=== PATIENT | female | born 1925 | race Caucasian/White ===

== ENCOUNTER 2016-09-23 12:55 | Emergency (ER) | payer MEDICARE ==
[~2016-09-23] VITALS: Ht 162.6 cm; Wt 50.0 kg
[2016-09-23 13:12] VITALS: BP 126/78; PULSE 82; RESP 18; TEMP 98.2; O2SAT 98
[2016-09-23 13:21] VITALS: BP 126/78; PULSE 82; RESP 18; TEMP 98.2; O2SAT 98
--- NOTE | 2016-09-23 13:30 | PD ---
HPI Chief Complaint: Fall Time Seen by Provider: 13:24 Travel History International Travel<30 days: No Contact w/Intl Traveler<30days: No Traveled to known affect area: No History of Present Illness HPI 89-year-old elderly female presents to the emergency department for her assisted -living facility with the nurse at bedside. The patient is very hard of hearing and is difficult to obtain information from the patient. Their nurse at bedside witnessed the fall. She states that she was in the bathroom and became tangled in her pants causing her to fall forward and hit her head. She is on Eliquis for atrial fibrillation. The patient is also complaining of left medial wrist pain with palpation. She was able to ambulate after the fall. The patient denies any pain to me. PFSH Past Medical History Hx Anticoagulant Therapy: Yes (ELIQUIS) Cardiovascular Problems: Yes (AFIB) ?: Not Social History Alcohol Use: No Tobacco Use: No Substance Use: No Allergies-Medications (Allergen,Severity, Reaction): Coded Allergies: No Known Allergies (Unverified , 09/23/16) Reported Meds & Prescriptions Reported Meds & Active Scripts Active Review of Systems Except as stated in HPI: all other systems reviewed are Neg Physical Exam Narrative GENERAL: Well-nourished, well-developed elderly female patient, afebrile. SKIN: Focused skin assessment warm/dry. HEAD: Normocephalic. Patient has slight swelling to the left upper eye orbit. EYES: No scleral icterus. No injection or drainage. NECK: Supple, trachea midline. No JVD or lymphadenopathy. CARDIOVASCULAR: Regular rate and rhythm without murmurs, gallops, or rubs. RESPIRATORY: Breath sounds equal bilaterally. No accessory muscle use. Lungs sounds are clear to auscultation. GASTROINTESTINAL: Abdomen soft, non-tender, nondistended. MUSCULOSKELETAL: No cyanosis, or edema. Patient has tenderness to palpation over the left medial wrist. No obvious deformity. Patient has full range of motion. BACK: Nontender without obvious deformity. No CVA tenderness. Data Data Last Documented VS Vital Signs Date Time Temp Pulse Resp B/P Pulse Ox O2 Delivery O2 Flow Rate FiO2 09/23/16 13:21 18 98 Room Air 09/23/16 13:21 98.2 82 126/[address] Brain W/O Iv Contrast(Rout) (09/23/16 ) Hand, Complete (Oro2nzs) (09/23/16 ) Ct Cerv Spine W/O Contrast (09/23/16 ) MDM Medical Decision Making Medical Screen Exam Complete: Yes Emergency Medical Condition: Yes Medical Record Reviewed: Yes Interpretation(s) CT cervical spine - CONCLUSION: Negative trauma CT. CT brain - CONCLUSION: Negative trauma CT. Last Impressions Hand X-Ray 09/23/16 0000 Signed Impressions: Service Date/Time: Friday, September 23, 2016 13:42 - CONCLUSION: 1. No acute fracture or malalignment. 2. Osteopenia and mild osteoarthritic change. David Burrows MD Differential Diagnosis Closed head injury versus intracranial abnormality versus hand contusion versus fracture versus sprain versus cervical strain versus cervical fracture Narrative Course 89-year-old elderly female presents to the emergency department via EMS from her [facility] for evaluation after a fall. Patient tripped and fell. She was able ambulatory after the fall. CT of the brain and cervical spine are ordered and pending. X-ray of the left hand is ordered and pending. CT of the brain is negative. CT of the cervical spine is negative. X-ray of the left hand shows no acute fracture or malalignment; osteopenia and mild osteoarthritic change. Imaging results are reassuring. Patient is stable for discharge back to her [facility]. Diagnosis Primary Impression: Closed head injury Qualified Code: S09.90XA - Closed head injury, initial encounter Additional Impression: Hand contusion Qualified Code: S60.222A - Contusion of left hand, initial encounter Referrals: Primary Care Physician call for appointment Patient Instructions: Contusion in Adults (ED), General Instructions, Head Injury (ED) Additional Instructions: Ice for 20 minutes 4-5 times daily. [id number] Tylenol every 4 hours as needed for pain. Follow-up with your primary care physician. Return to the emergency department for any acute worsening of symptoms. Med/Other Pt SpecificInfo: No Change to Meds Disposition: 01 DISCHARGE HOME Condition: Stable Sindi Harkins Sep 23, 2016 13:30
--- NOTE | 2016-09-23 14:04 | RADRPT ---
EXAM DATE/TIME: 09/23/2016 13:42 [facility] COMPARISON: No previous studies available for comparison. INDICATIONS : Left hand pain, fall. MEDICAL HISTORY : None. SURGICAL HISTORY : None. ENCOUNTER: Initial ACUITY: 1 day PAIN SCORE: 7/10 LOCATION: Left posterior hand FINDINGS: AP, lateral and oblique views of the left hand were obtained and demonstrate diffuse osteopenia and m ild osteoarthritic change. There is no acute fracture or malalignment. The metacarpals are intact. No focal soft tissue abnormality is identified radiographically. CONCLUSION: 1. No acute fracture or malalignment. 2. Osteopenia and mild osteoarthritic change. David Burrows MD on September 23, 2016 at 14:02 Board Certified Radiologist. This report was verified electronically.
--- NOTE | 2016-09-23 14:49 | RADRPT ---
EXAM DATE/TIME: 09/23/2016 14:33 [facility] COMPARISON: No previous studies available for comparison. INDICATIONS : Fall injury to left forehead. Confusion. RADIATION DOSE: 56.8 CTDIvol (mGy) MEDICAL HISTORY : Dementia. Cardiovascular disease Afib SURGICAL HISTORY : None. ENCOUNTER: Initial ACUITY: 1 day PAIN SCALE: 7/10 LOCATION: Left cranial TECHNIQUE: Multiple contiguous axial images were obtained of the head. Using automated exposure control and adj ustment of the mA and/or kV according to patient size, radiation dose was kept as low as reasonably a chievable to obtain optimal diagnostic quality images. DICOM format image data is available electro nically for review and comparison. FINDINGS: CEREBRUM: The ventricles are normal for age with diffuse atrophy and chronic small vessel ischemic change. No e vidence of midline shift, mass lesion, hemorrhage or acute infarction. No extra-axial fluid collecti ons are seen. POSTERIOR FOSSA: The cerebellum and brainstem are intact. The 4th ventricle is midline. The cerebellopontine angle i s unremarkable. EXTRACRANIAL: The visualized portion of the orbits is intact. SKULL: The calvaria is intact. No evidence of skull fracture. CONCLUSION: Negative trauma CT. David Burrows MD on September 23, 2016 at 14:46 Board Certified Radiologist. This report was verified electronically.
--- NOTE | 2016-09-23 14:56 | RADRPT ---
EXAM DATE/TIME: 09/23/2016 14:34 [facility] COMPARISON: No previous studies available for comparison. INDICATIONS : Fall injury to left forehead.Confusion. RADIATION DOSE: 27.89 CTDIvol (mGy) MEDICAL HISTORY : Dementia. Cardiovascular disease Afib SURGICAL HISTORY : None. ENCOUNTER: Initial ACUITY: 1 day PAIN SCALE: 7/10 LOCATION: Left cranial TECHNIQUE: Volumetric scanning of the cervical spine was performed. Multiplanar reconstructions in the sagittal, coronal and oblique axial planes were performed. Using automated exposure control and adjustment o f the mA and/or kV according to patient size, radiation dose was kept as low as reasonably achievable to obtain optimal diagnostic quality images. DICOM format image data is available electronically f or review and comparison. FINDINGS: The sagittal reconstructions demonstrate normal alignment and normal prevertebral soft tissues. The d ens is intact and there is a normal atlantoaxial relationship. Mild degenerative disc changes are pre sent. There is diffuse osteopenia. The axial images demonstrate that the vertebral bodies and posterior elements are intact. The soft ti ssues are within normal limits. There is no evidence of acute fracture or malalignment. CONCLUSION: Negative trauma CT. David Burrows MD on September 23, 2016 at 14:53 Board Certified Radiologist. This report was verified electronically.
== END 2016-09-23 15:54 | disposition home or self-care (01) ==
LOC: NEPD 12:55
DX: S09.90XA Unspecified injury of head, initial encounter (principal); S60.222A Contusion of left hand, initial encounter; M85.842 Other specified disorders of bone density and structure, left hand; I48.91 Unspecified atrial fibrillation; W01.0XXA Fall on same level from slipping, tripping and stumbling without subsequent striking against object, initial encounter; Y92.129 Unspecified place in nursing home as the place of occurrence of the external cause
CPT/HCPCS: 70450; 72125; 73130

== ENCOUNTER 2016-10-13 08:16 | Emergency (ER) | payer MEDICARE ==
[2016-10-13 08:19] VITALS: BP 179/93; PULSE 93; RESP 16; TEMP 99.1; O2SAT 98
--- NOTE | 2016-10-13 08:28 | PD ---
HPI . 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 There was no associated loss of consciousness. She has been acting her usual self since that time. She is on Eliquis. [facility] Past Medical History Medical History: Unable to Obtain Hx Anticoagulant Therapy: Yes (Eliquise) Atrial Fibrillation: Yes Cardiovascular Problems: Yes (AFIB) Dementia: Yes Diminished Hearing: Yes Tetanus Vaccination: Unknown ?: Not Past Surgical History Surgical History: Unable to Obtain Social History Alcohol Use: No Tobacco Use: No Substance Use: No Allergies-Medications (Allergen,Severity, Reaction): Coded Allergies: No Known Allergies (Unverified , 10/13/16) Reported Meds & Prescriptions Reported Meds & Active Scripts Active Reported Seroquel (Quetiapine Fumarate) 25 Mg Tab 12.5 Mg PO BID PRN Quetiapine (Quetiapine Fumarate) 25 Mg Tab 50 Mg PO HS Centrum Silver (Multiple Vitamins W/ Minerals) 400 Mcg-250 Mcg Chw 1 Tab PO DAILY Calcium 600+D Plus Minerals (Calcium Carbonate-Vitamin D W/Minerals) 600-400 Mg- Unit Tab 1 Tab PO BID Biotin 10 Mg Tab 10 Mg PO BID Vitamin B-12 (Cyanocobalamin) 1,000 Mcg Tab 1,000 Mcg PO DAILY Quetiapine (Quetiapine Fumarate) 25 Mg Tab 12.5 Mg PO DAILY Propafenone (Propafenone HCl) 150 Mg Tab 150 Mg PO BID Probiotic (Lactobacillus Acidophilus) 10 Billion Cell Cap 1 Cap PO BID Memantine 10 Mg Tab 10 Mg PO BID Exelon Patch (Rivastigmine) 9.5 mg/24 hr Patch 1 Patch T-DERMAL DAILY Eliquis (Apixaban) 2.5 Mg Tab 2.5 Mg PO BID Review of Systems ROS Limitations: Poor Historian, Other: (dementia) Physical Exam Narrative GENERAL: This patient is awake and alert and able to tell me her name. She has no idea where she is or why she is here. SKIN: warm/dry. HEAD: Normocephalic. She has a contusion to the posterior scalp. EYES: Pupils equal and round. No scleral icterus. No injection or drainage. ENT: No nasal bleeding or discharge. Mucous membranes pink and moist. NECK: Trachea midline. Full range of motion without pain.. CARDIOVASCULAR: Regular rate and rhythm. RESPIRATORY: No accessory muscle use. Clear to auscultation. Breath sounds equal bilaterally. MUSCULOSKELETAL: No obvious deformities. NEUROLOGICAL: Awake and alert. No obvious cranial nerve deficits. Motor grossly within normal limits. Normal speech. PSYCHIATRIC: Pleasantly demented. Data Data Last Documented VS Vital Signs Date Time Temp Pulse Resp B/P (MAP) Pulse Ox O2 Delivery O2 Flow Rate FiO2 10/13/16 08:21 93 16 98 Room Air 10/13/16 08:19 99.1 179/93 (121) Orders Orders Ct Brain W/O Iv Contrast(Rout) (10/13/16 08:25) Ct Cerv Spine W/O Contrast (10/13/16 08:25) [facility] Medical Decision Making Medical Screen Exam Complete: Yes Emergency Medical Condition: Yes Differential Diagnosis My differential diagnosis of head trauma includes but is not limited to scalp contusion, concussion, intracerebral hemorrhage. Narrative Course This patient presents for evaluation of injury to her head. She has dementia and is on Eliquis. CT of her head and neck are pending. Last Impressions Head CT 10/13/16824 Signed Impressions: Service Date/Time: October 08:42 - CONCLUSION: Atrophic and small vessel ischemic changes without any evidence for acute hemorrhage or mass effect. Rosalio Bush MD CT C-spine: 1. No acute fracture or prevertebral soft tissue swelling. 2. Diffuse cervical spondylosis from C3 through C7. 3. Mild bilateral foraminal narrowing at C3-4, C4-5, C5-6 and C6-7. 4. Multinodular thyroid. Diagnosis Primary Impression: Scalp contusion Qualified Codes: S00.03XA - Contusion of scalp, initial encounter Patient Instructions: General Instructions, Scalp Contusion in Adults (ED) Disposition: 01 DISCHARGE HOME Condition: Stable Dana Escobar MD Oct 13, 2016 08:28
[2016-10-13] MEDS ORDERED: RIVA9.5T T-DERMAL (08:39)
[2016-10-13] MEDS ORDERED: CALCTAB33 PO (08:39)
[2016-10-13] MEDS ORDERED: PROP150T PO (08:39)
[2016-10-13] MEDS ORDERED: BIOT10TA PO (08:39)
[2016-10-13] MEDS ORDERED: MEMA1TAB2 PO (08:39)
[2016-10-13] MEDS ORDERED: QUET1TAB7 PO ×2 (08:39)
[2016-10-13] MEDS ORDERED: APIX2.5T PO (08:39)
[2016-10-13] MEDS ORDERED: CENTCHW3 PO (08:39)
[2016-10-13] MEDS ORDERED: LACTCAP8 PO (08:39)
[2016-10-13] MEDS ORDERED: VITA10002 PO (08:39)
[2016-10-13] MEDS ORDERED: SERO25TA PO (08:39)
--- NOTE | 2016-10-13 09:20 | RADRPT ---
EXAM DATE/TIME: 10/13/2016 08:42 [facility] COMPARISON: CT CERVICAL SPINE W/O CONTRAST, September 23, 2016, 14:34. INDICATIONS : Trauma. Fell and hit the back of her head. RADIATION DOSE: 25.28 CTDIvol (mGy) MEDICAL HISTORY : Dementia. Cardiovascular disease SURGICAL HISTORY : None. ENCOUNTER: Initial ACUITY: 1 day PAIN SCALE: 0/10 LOCATION: neck TECHNIQUE: Volumetric scanning of the cervical spine was performed. Multiplanar reconstructions in the sagittal, coronal and oblique axial planes were performed. Using automated exposure control and adjustment o f the mA and/or kV according to patient size, radiation dose was kept as low as reasonably achievable to obtain optimal diagnostic quality images. DICOM format image data is available electronically f or review and comparison. FINDINGS: Cervical spondylosis is noted from C3 through C7. There is no acute fracture or prevertebral soft ti ssue swelling. No bony spinal canal stenosis is noted. The bony relationship and alignment between C1 and C2 is well maintained. Mild bilateral foraminal narrowing is noted at C3-4, C4-5, C5-6 and C6 -7. Multiple thyroid nodules are noted bilaterally. CONCLUSION: 1. No acute fracture or prevertebral soft tissue swelling. 2. Diffuse cervical spondylosis from C3 through C7. 3. Mild bilateral foraminal narrowing at C3-4, C4-5, C5-6 and C6-7. 4. Multinodular thyroid. Richard Martin MD on October 13, 2016 at 9:11 Board Certified Radiologist. This report was verified electronically.
--- NOTE | 2016-10-13 09:53 | RADRPT ---
EXAM DATE/TIME: 10/13/2016 08:42 [facility] COMPARISON: CT BRAIN W/O CONTRAST, September 23, 2016, 14:33. INDICATIONS : Trauma. Fell and hit the back of her head. RADIATION DOSE: 41.70 CTDIvol (mGy) MEDICAL HISTORY : Cardiovascular disease. Dementia. SURGICAL HISTORY : None. ENCOUNTER: Initial ACUITY: 1 day PAIN SCALE: 4/10 LOCATION: cranial TECHNIQUE: Multiple contiguous axial images were obtained of the head. Using automated exposure control and adj ustment of the mA and/or kV according to patient size, radiation dose was kept as low as reasonably a chievable to obtain optimal diagnostic quality images. DICOM format image data is available electro nically for review and comparison. FINDINGS: There is no evidence for intracranial hemorrhage, mass effect, mass lesions, or edema. The visualize d bony structures appear intact. Slight degree of brain atrophy is seen. Slight to moderate perivent ricular white matter changes are seen nonspecific mostly consistent with chronic small vessel ischemi c changes. There are no signs of acute infarction for technique. CONCLUSION: Atrophic and small vessel ischemic changes without any evidence for acute hemorr marlyn or mass effect. Rosalio Bush MD on October 13, 2016 at 9:49 Board Certified Radiologist. This report was verified electronically.
== END 2016-10-13 10:14 | disposition home or self-care (01) ==
LOC: PHED 08:16
DX: S00.03XA Contusion of scalp, initial encounter (principal); I48.91 Unspecified atrial fibrillation; F03.90 Unspecified dementia, unspecified severity, without behavioral disturbance, psychotic disturbance, mood disturbance, and anxiety; Z79.01 Long term (current) use of anticoagulants; W19.XXXA Unspecified fall, initial encounter; Y92.129 Unspecified place in nursing home as the place of occurrence of the external cause; Y99.8 Other external cause status
CPT/HCPCS: 70450; 72125; 99285

== ENCOUNTER 2016-11-05 21:21 | Observation (INO) | payer MEDICARE ==
[~2016-11-05 21:21] MED LIST: APIX2.5T PO; BIOT10TA PO; CALCTAB33 PO; CENTCHW3 PO; LACTCAP8 PO; MEMA1TAB2 PO; PROP150T PO; QUET1TAB7 PO; RIVA9.5T T-DERMAL; SERO25TA PO; VITA10002 PO
[2016-11-05] MEDS ORDERED: SODIUM CHLOR 0.9% 1000 ML INJ 1,000 ML IV SCH (21:57)
[2016-11-05 22:00] VITALS: BP 139/59; PULSE 89; RESP 16; O2SAT 100
--- NOTE | 2016-11-05 22:12 | PD ---
HPI Chief Complaint: Syncope/Near-Syncope Time Seen by Provider: 21:55 Travel History International Travel<30 days: No Contact w/Intl Traveler<30days: No Traveled to known affect area: No History of Present Illness HPI 89-year-old female that presents to the ED for evaluation of syncope. Patient was brought here by ambulance for evaluation of this. Patient lives in an [facility]. Patient has a history of A. fib and takes liquids as well as a history of dementia. History is minimal from the patient. Per ED nurse report as well as the [facility] report patient was in the bathroom and apparently had a bowel movement and possibly passed out during this time. She was found by staff at the facility. She was brought here for evaluation. No obvious sign of head trauma. Patient herself is no a good historian at all. History is limited from her. She did per ED nurse report had a bloody bowel movement when they changed her diaper. No other medical issues reported. No chest pain or shortness of breath. No abdominal pain. No fevers chills or sweats. Again history is limited because of the patient's mental status. PFSH Past Medical History Hx Anticoagulant Therapy: Yes (Eliquise) Atrial Fibrillation: Yes Cardiovascular Problems: Yes (AFIB) Dementia: Yes Diminished Hearing: Yes Social History Alcohol Use: No Tobacco Use: No Substance Use: No Allergies-Medications (Allergen,Severity, Reaction): Coded Allergies: No Known Allergies (Unverified , 10/13/16) Reported Meds & Prescriptions Reported Meds & Active Scripts Active Reported Seroquel (Quetiapine Fumarate) 25 Mg Tab 12.5 Mg PO BID PRN Quetiapine (Quetiapine Fumarate) 25 Mg Tab 50 Mg PO HS Centrum Silver (Multiple Vitamins W/ Minerals) 400 Mcg-250 Mcg Chw 1 Tab PO DAILY Calcium 600+D Plus Minerals (Calcium Carbonate-Vitamin D W/Minerals) 600-400 Mg- Unit Tab 1 Tab PO BID Biotin 10 Mg Tab 10 Mg PO BID Vitamin B-12 (Cyanocobalamin) 1,000 Mcg Tab 1,000 Mcg PO DAILY Quetiapine (Quetiapine Fumarate) 25 Mg Tab 12.5 Mg PO DAILY Propafenone (Propafenone HCl) 150 Mg Tab 150 Mg PO BID Probiotic (Lactobacillus Acidophilus) 10 Billion Cell Cap 1 Cap PO BID Memantine 10 Mg Tab 10 Mg PO BID Exelon Patch (Rivastigmine) 9.5 mg/24 hr Patch 1 Patch T-DERMAL DAILY Eliquis (Apixaban) 2.5 Mg Tab 2.5 Mg PO BID Review of Systems ROS Limitations: Poor Historian Except as stated in HPI: all other systems reviewed are Neg Physical Exam Exam Limitations: Poor Historian Narrative GENERAL: SKIN: Warm and dry. HEAD: Atraumatic. Normocephalic. EYES: Pupils equal and round. No scleral icterus. No injection or drainage. ENT: No nasal bleeding or discharge. Mucous membranes pink and moist. Tongue is midline. No uvula deviation. NECK: Trachea midline. No JVD. CARDIOVASCULAR: Regular rate and rhythm. No murmurs, S3, S4. RESPIRATORY: No accessory muscle use. Clear to auscultation. Breath sounds equal bilaterally. GASTROINTESTINAL: Abdomen soft, non-tender, nondistended. Hepatic and splenic margins not palpable. Rectal exam revealed no obvious sign of hemorrhoids but there was some slightly reddish blood on her anus. MUSCULOSKELETAL: Extremities without clubbing, cyanosis, or edema. No obvious deformities. Full range of motion of the upper and lower extremities bilaterally. 2+ pulses bilaterally. NEUROLOGICAL: Awake and alert. No obvious cranial nerve deficits. Motor grossly within normal limits. Five out of 5 muscle strength in the arms and legs. Normal speech. PSYCHIATRIC: Appropriate mood and affect; insight and judgment normal. Data Data Orders Orders Electrocardiogram (11/05/16 21:55) Complete Blood Count With Diff (11/05/16 21:55) Comprehensive Metabolic Panel (11/05/16 21:55) Ckmb (Isoenzyme) Profile (11/05/16 21:55) Troponin I (11/05/16 21:55) Prothrombin Time / Inr (Pt) (11/05/16 21:55) Act Partial Throm Time (Ptt) (11/05/16 21:55) Blood Culture (11/05/16 21:55) Urinalysis - C+S If Indicated (11/05/16 21:55) Cath For Specimen (11/05/16 21:55) Magnesium (Mg) (11/05/16 21:55) Chest, Single Ap (11/05/16 21:55) Ct Brain W/O Iv Contrast(Rout) (11/05/16 21:55) Iv Access Insert/Monitor (11/05/16 21:55) Ecg Monitoring (11/05/16 21:55) Oximetry (11/05/16 21:55) Type And Screen (11/05/16 21:55) Sodium Chlor 0.9% 1000 Ml Inj (Ns 1000 M (11/05/16 21:57) MDM Medical Decision Making Medical Screen Exam Complete: Yes Emergency Medical Condition: Yes Medical Record Reviewed: Yes Interpretation(s) CXR negative CT head negative Differential Diagnosis GI bleed versus syncope versus anemia versus head injury versus CVA versus ACS versus dehydration Narrative Course 89-year-old female that presents to the ED for evaluation of syncope. Patient was properly examined and was found to have signs and symptoms consistent appears to be syncope. Patient also appears to have GI bleed. Labs and imaging were ordered. Patient taking in liquids. Labs and imaging pending at the writing of this note. Case signed out to Dr Cuevas pending dispo. Bobby Merrill Nov 05, 2016 22:12
--- NOTE | 2016-11-05 22:39 | RADRPT ---
EXAM DATE/TIME: 11/05/2016 22:18 [facility] COMPARISON: CT BRAIN W/O CONTRAST, October 13, 2016, 8:42. INDICATIONS : Altered mental status with syncopal episode. RADIATION DOSE: 26.52 CTDIvol (mGy) MEDICAL HISTORY : Cardiovascular disease. Dementia. SURGICAL HISTORY : None. ENCOUNTER: Initial ACUITY: 1 day PAIN SCALE: Non-responsive LOCATION: cranial TECHNIQUE: Multiple contiguous axial images were obtained of the head. Using automated exposure control and adj ustment of the mA and/or kV according to patient size, radiation dose was kept as low as reasonably a chievable to obtain optimal diagnostic quality images. DICOM format image data is available electro nically for review and comparison. FINDINGS: CEREBRUM: The ventricles are normal for age. No evidence of midline shift, mass lesion, hemorrhage or acute in farction. No extra-axial fluid collections are seen. POSTERIOR FOSSA: The cerebellum and brainstem are intact. The 4th ventricle is midline. The cerebellopontine angle i s unremarkable. EXTRACRANIAL: The visualized portion of the orbits is intact. SKULL: The calvaria is intact. No evidence of skull fracture. CONCLUSION: Age-appropriate atrophy. No acute findings. Gonzalo Faustin MD on November 05, 2016 at 22:37 Board Certified Radiologist. This report was verified electronically.
--- NOTE | 2016-11-05 22:40 | RADRPT ---
EXAM DATE/TIME: 11/05/2016 22:29 [facility] COMPARISON: No previous studies available for comparison. INDICATIONS : Syncope. MEDICAL HISTORY : Cardiovascular disease. Dementia. SURGICAL HISTORY : None. ENCOUNTER: Initial ACUITY: 1 day PAIN SCORE: Non-responsive. LOCATION: Bilateral chest FINDINGS: A single view of the chest demonstrates the lungs to be symmetrically aerated without evidence of mas s, infiltrate or effusion. The cardiomediastinal contours are unremarkable. Osseous structures are intact. Metallic leads and bra clips project over the knee is patent. CONCLUSION: The lungs are clear. Gonzalo Faustin MD on November 05, 2016 at 22:38 Board Certified Radiologist. This report was verified electronically.
[2016-11-05 23:51] VITALS: O2SAT 96
--- NOTE | 2016-11-05 23:56 | PD ---
Data Data Last Documented VS Vital Signs Date Time Temp Pulse Resp B/P (MAP) Pulse Ox O2 Delivery O2 Flow Rate FiO2 11/05/16 23:51 96 Orders Orders Electrocardiogram (11/05/16 21:55) Complete Blood Count With Diff (11/05/16 21:55) Comprehensive Metabolic Panel (11/05/16 21:55) Ckmb (Isoenzyme) Profile (11/05/16 21:55) Troponin I (11/05/16 21:55) Prothrombin Time / Inr (Pt) (11/05/16 21:55) Act Partial Throm Time (Ptt) (11/05/16 21:55) Blood Culture (11/05/16 21:55) Urinalysis - C+S If Indicated (11/05/16 21:55) Cath For Specimen (11/05/16 21:55) Magnesium (Mg) (11/05/16 21:55) Chest, Single Ap (11/05/16 21:55) Ct Brain W/O Iv Contrast(Rout) (11/05/16 21:55) Iv Access Insert/Monitor (11/05/16 21:55) Ecg Monitoring (11/05/16 21:55) Oximetry (11/05/16 21:55) Type And Screen (11/05/16 21:55) Sodium Chlor 0.9% 1000 Ml Inj (Ns 1000 M (11/05/16 21:57) CKMB (11/05/16 23:35) CKMB% (11/05/16 23:35) Admit Order (Ed Use Only) (11/06/16 ) Labs Laboratory Tests Test 11/05/16 23:35 White Blood Count 9.9 TH/MM3 Red Blood Count 4.01 MIL/MM3 Hemoglobin 11.9 GM/DL Hematocrit 36.4 % Mean Corpuscular Volume 90.8 FL Mean Corpuscular Hemoglobin 29.8 PG Mean Corpuscular Hemoglobin Concent 32.8 % Red Cell Distribution Width 13.8 % Platelet Count 170 TH/MM3 Mean Platelet Volume 7.5 FL Neutrophils (%) (Auto) 84.2 % Lymphocytes (%) (Auto) 8.5 % Monocytes (%) (Auto) 6.9 % Eosinophils (%) (Auto) 0.2 % Basophils (%) (Auto) 0.2 % Neutrophils # (Auto) 8.3 TH/MM3 Lymphocytes # (Auto) 0.8 TH/MM3 Monocytes # (Auto) 0.7 TH/MM3 Eosinophils # (Auto) 0.0 TH/MM3 Basophils # (Auto) 0.0 TH/MM3 CBC Comment DIFF FINAL Differential Comment Urine Color YELLOW Urine Turbidity HAZY Urine pH 6.5 Urine Specific [place] 1.016 Urine Protein TRACE mg/dL Urine Glucose (UA) NEG mg/dL Urine Ketones NEG mg/dL Urine Occult Blood NEG Urine Nitrite NEG Urine Bilirubin NEG Urine Urobilinogen LESS THAN 2.0 MG/DL Urine Leukocyte Esterase TRACE Urine RBC 1 /hpf Urine WBC 5 /hpf Urine Mucus FEW /lpf Microscopic Urinalysis Comment CULT NOT INDICATED Blood Urea Nitrogen 23 MG/DL Creatinine 1.04 MG/DL Random Glucose 113 MG/DL Total Protein 7.1 GM/DL Albumin 3.6 GM/DL Calcium Level 9.5 MG/DL Magnesium Level 2.0 MG/DL Alkaline Phosphatase 86 U/L Aspartate Amino Transf (AST/SGOT) 21 U/L Alanine Aminotransferase (ALT/SGPT) 21 U/L Total Bilirubin 0.4 MG/DL Sodium Level 142 MEQ/L Potassium Level 4.2 MEQ/L Chloride Level 107 MEQ/L Carbon Dioxide Level 27.2 MEQ/L Anion Gap 8 MEQ/L Estimat Glomerular Filtration Rate 50 ML/MIN Total Creatine Kinase 106 U/L Creatine Kinase MB 1.4 NG/ML Troponin I LESS THAN 0.02 NG/ML [facility] Supervised Visit with TONYA: Yes Interpretation(s) My review of EKG: Normal sinus rhythm at a rate of 87, normal axis, normal intervals, no ischemia. Head CT: Age-appropriate atrophy. No acute findings. Chest x-ray: Negative. LABS: CBC is unremarkable. CMP is remarkable for mildly elevated BUN and creatinine Troponin negative Coags pending UA unremarkable. Narrative Course The history, exam, and medical decision-making in the associated mid-level provider note were completed with my assistance. I reviewed and agree with the findings presented. I attest that I had a [id number] encounter with the patient on the same day, and personally performed and documented my assessment and findings in the medical record. *My assessment and Findings: Is an 89-year-old woman who presents to the emergency department sent in for an episode of syncope. She takes blood thinners for her A. fib. He reports she was in the bathroom apparently had a syncopal episode following a bowel movement. She has guaiac positive stools on exam. Concern for GI bleed. She is dementia, gets agitated during exam. On exam, agitated and minimally interactive. Benign abdominal exam. Labs looked reassuring. We'll plan on admission for observation. Robert Cuevas MD Nov 05, 2016 23:56
[2016-11-06] VITALS (11 sets, daily range): BP systolic 104–176; BP diastolic 58–75; PULSE 74–93; RESP 16–20; TEMP 97.9–98.6; O2SAT 96–100
[2016-11-06 00:22] LABS: AUTOMATED NEUTROPHIL # 8.3 TH/MM3 (1.8-7.7); BASOPHIL % 0.2 % (0.0-2.0); BLOOD, URINE NEG (NEG); COMMENT (UR) CULT NOT INDICATED; CULTURE IF INDICATED CULT NOT INDICATED; EOSINOPHIL % 0.2 % (0.0-4.0); GLUCOSE,URINE NEG (NEG); HEMATOCRIT 36.4 % (35.0-46.0); HEMO FLAGS DIFF FINAL; KETONE, URINE NEG (NEG); LYMPH % 8.5 % (9.0-44.0); LYMPHOCYTE # 0.8 TH/MM3 (1.0-4.8); MEAN CELL VOLUME 90.8 FL (80.0-100.0); MEAN CORPUSCULAR HEMOGLOBIN 29.8 PG (27.0-34.0); MEAN CORPUSCULAR HGB CONC 32.8 % (32.0-36.0); MONO % 6.9 % (0.0-8.0); MUCUS URINE FEW /lpf (OCC); NEUT % 84.2 % (16.0-70.0); NITRITE,URINE NEG (NEG); PH, URINE 6.5 (5.0-8.5); PLATELET COUNT 170 TH/MM3 (150-450); RED BLOOD COUNT 4.01 MIL/MM3 (4.00-5.30); RED CELL DISTRIBUTION WIDTH 13.8 % (11.6-17.2); URINE COLOR YELLOW (YELLW/STRAW); WHITE BLOOD COUNT 9.9 TH/MM3 (4.0-11.0)
[2016-11-06 00:23] LABS: PROTHROMBIN TIME - PATIENT 11.1 SEC (9.8-11.6)
[2016-11-06 00:47] LABS: ALT (GPT) 21 U/L (10-53); ANION GAP 8 MEQ/L (5-15); AST (GOT) 21 U/L (15-37); BICARBONATE 27.2 MEQ/L (21.0-32.0); BLOOD UREA NITROGEN 23 MG/DL (7-18); CHLORIDE 107 MEQ/L (98-107); GLOMERULAR FILTRATION RATE 50 ML/MIN (>89); POTASSIUM 4.2 MEQ/L (3.5-5.1); SODIUM (NA) 142 MEQ/L (136-145)
[2016-11-06 00:50] LABS: ALKALINE PHOSPHATASE 86 U/L (45-117); CREATINE KINASE 106 U/L (26-192); TOTAL BILIRUBIN ADULT 0.4 MG/DL (0.2-1.0)
[2016-11-06 01:03] LABS: CKMB 1.4 NG/ML (0.5-3.6)
[2016-11-06] MEDS ORDERED: QUEtiapine FUMARATE 25 MG TAB PO PRN ×2 (05:30→14:45)
[2016-11-06] MEDS ORDERED: ONDANSETRON HCL 4 MG/2 ML VIAL IV PUSH PRN (05:30)
[2016-11-06] MEDS ORDERED: ACETAMINOPHEN 325 MG TAB PO PRN (05:30)
[2016-11-06] MEDS: SODIUM CHLOR 0.9% 1000 ML INJ 1,000 ML IV SCH ×2 (05:41→17:15)
--- NOTE | 2016-11-06 07:06 | EKG ---
Date Performed: 11/05/2016 Time Performed: 23:15:33 PTAGE: 89 years EKG: Sinus rhythm WITH SINUS ARRHYTHMIA NORMAL ECG NO PREVIOUS TRACING DOCTOR: Jerome Huerta Interpretating Date/Time 11/06/2016 07:04:28
--- NOTE | 2016-11-06 07:48 | PD.CONS ---
HPI History of Present Illness This is a 89 year old female, who resides in a local [facility], who presented to the emergency room for evaluation of a syncopal episode. She has a history of dementia and atrial fibrillation (takes Eliquis). According to the EMR, she was having a bowel movement and had a syncopal episode. She is guaiac positive on exam. HH on admission 11.9/36.4. GI was consulted for further evaluation and treatment. The patient is confused and unable to provide any history. Her son, Richard Lemus is her medical POA, ([phone]). He reports that she has a history of stomach ulcers several decades ago. He also reports that he is unaware of any gastrointestinal issues more recently other than chronic constipation. He does not know if she has had an EGD/Colonoscopy. D/W him the reason for her hospitalization, Guaiac positive stool, and GI evaluation. Discussed EGD/Colonoscopy, risk vs. benefits. He is unsure if he would want to proceed invasive workup and at this time, would like to wait for the repeat H/H to see if there is any significant drop prior to making a decision. He would like to be called with the repeat HH so that he can make an informed decision. He would also like to speak to the medical doctor about the possibility of stopping blood thinners. (Salome Gonsalves) PFSH Past Medical History Atrial fibrillation, on Eliquis Dementia Remote hx of PUD Chronic constipation LYTTON Past Surgical History Unable to obtain (Salome Gonsalves) Coded Allergies: No Known Allergies (Unverified , 10/13/16) Medications Allergies Coded Allergies Type Severity Reaction Last Updated Verified No Known Allergies 10/13/16 No Active Scripts Medications Dose Route/Sig Max Daily Dose Days Date Category Seroquel (Quetiapine Fumarate) 25 Mg Tab 12.5 Mg PO BID PRN 10/13/16 Reported Quetiapine (Quetiapine Fumarate) 25 Mg Tab 50 Mg PO HS 10/13/16 Reported Centrum Silver (Multiple Vitamins W/ Minerals) 400 Mcg-250 Mcg Chw 1 Tab PO DAILY 10/13/16 Reported Calcium 600+D Plus Minerals (Calcium Carbonate-Vitamin D W/Minerals) 600-400 Mg-Unit Tab 1 Tab PO BID 10/13/16 Reported Biotin 10 Mg Tab 10 Mg PO BID 10/13/16 Reported Vitamin B-12 (Cyanocobalamin) 1,000 Mcg Tab 1,000 Mcg PO DAILY 10/13/16 Reported Quetiapine (Quetiapine Fumarate) 25 Mg Tab 12.5 Mg PO DAILY 10/13/16 Reported Propafenone (Propafenone HCl) 150 Mg Tab 150 Mg PO BID 10/13/16 Reported Probiotic (Lactobacillus Acidophilus) 10 Billion Cell Cap 1 Cap PO BID 10/13/16 Reported Memantine 10 Mg Tab 10 Mg PO BID 10/13/16 Reported Exelon Patch (Rivastigmine) 9.5 mg/24 hr Patch 1 Patch T-DERMAL DAILY 10/13/16 Reported Eliquis (Apixaban) 2.5 Mg Tab 2.5 Mg PO BID 10/13/16 Reported Family History Unable to obtain Social History Unable to obtain (Salome Gonsalves) Review of Systems Cardiovascular: COMPLAINS OF: Syncope ROS Unable to obtain (Salome Gonsalves) GI Exam Vitals I&O Vital Signs Date Time Temp Pulse Resp B/P (MAP) Pulse Ox O2 Delivery O2 Flow Rate FiO2 11/06/16 05:46 77 11/06/16 03:40 97.9 90 16 110/69 (83) 98 Room Air 11/06/16 00:00 77 16 130/58 (82) 100 Room Air 11/05/16 23:51 96 11/05/16 22:00 89 16 139/59 (85) 100 Room Air I/O 11/05/16 11/05/16 11/05/16 11/06/16 11/06/16 11/06/16 07:00 15:00 23:00 07:00 15:00 23:00 Intake Total 1050 ml Balance 1050 ml Intake IV Total 1050 ml Laboratory Test 11/05/16 23:35 White Blood Count 9.9 TH/MM3 Red Blood Count 4.01 MIL/MM3 Hemoglobin 11.9 GM/DL Hematocrit 36.4 % Mean Corpuscular Volume 90.8 FL Mean Corpuscular Hemoglobin 29.8 PG Mean Corpuscular Hemoglobin Concent 32.8 % Red Cell Distribution Width 13.8 % Platelet Count 170 TH/MM3 Mean Platelet Volume 7.5 FL Neutrophils (%) (Auto) 84.2 % Lymphocytes (%) (Auto) 8.5 % Monocytes (%) (Auto) 6.9 % Eosinophils (%) (Auto) 0.2 % Basophils (%) (Auto) 0.2 % Neutrophils # (Auto) 8.3 TH/MM3 Lymphocytes # (Auto) 0.8 TH/MM3 Monocytes # (Auto) 0.7 TH/MM3 Eosinophils # (Auto) 0.0 TH/MM3 Basophils # (Auto) 0.0 TH/MM3 CBC Comment DIFF FINAL Differential Comment Prothrombin Time 11.1 SEC Prothromb Time International Ratio 1.0 RATIO Activated Partial Thromboplast Time 24.0 SEC Urine Color YELLOW Urine Turbidity HAZY Urine pH 6.5 Urine Specific [place] 1.016 Urine Protein TRACE mg/dL Urine Glucose (UA) NEG mg/dL Urine Ketones NEG mg/dL Urine Occult Blood NEG Urine Nitrite NEG Urine Bilirubin NEG Urine Urobilinogen LESS THAN 2.0 MG/DL Urine Leukocyte Esterase TRACE Urine RBC 1 /hpf Urine WBC 5 /hpf Urine Mucus FEW /lpf Microscopic Urinalysis Comment CULT NOT INDICATED Blood Urea Nitrogen 23 MG/DL Creatinine 1.04 MG/DL Random Glucose 113 MG/DL Total Protein 7.1 GM/DL Albumin 3.6 GM/DL Calcium Level 9.5 MG/DL Magnesium Level 2.0 MG/DL Alkaline Phosphatase 86 U/L Aspartate Amino Transf (AST/SGOT) 21 U/L Alanine Aminotransferase (ALT/SGPT) 21 U/L Total Bilirubin 0.4 MG/DL Sodium Level 142 MEQ/L Potassium Level 4.2 MEQ/L Chloride Level 107 MEQ/L Carbon Dioxide Level 27.2 MEQ/L Anion Gap 8 MEQ/L Estimat Glomerular Filtration Rate 50 ML/MIN Total Creatine Kinase 106 U/L Creatine Kinase MB 1.4 NG/ML Troponin I LESS THAN 0.02 NG/ML Date/Time Source Procedure Growth Status 11/05/16 23:40 Blood Peripheral Aerobic Blood Culture Pending Received 11/05/16 23:40 Blood Peripheral Anaerobic Blood Culture Pending Received Physical Examination HEENT: Normocephalic; atraumatic; no jaundice. CHEST: CTA, diminished bases CARDIAC: Regular at this time ABDOMEN: Soft, nondistended, nontender; no hepatosplenomegaly; bowel sounds are present in all four quadrants. EXTREMITIES: No clubbing, cyanosis, or edema. SKIN: Normal; no rash; no jaundice. AIRPLANE DISPATCH CLERK: Lethargic, confused, LYTTON (Salome Gonsalves) Assessment and Plan Plan ASSESSMENT: - Hemoccult (+) Stool. Pt brought to the ER for evaluation of syncopal episode. Guaiac positive on exam in ER. (+) Remote hx of PUD per son. (+) Eliquis for Afib. HH on admission 11.9/36.4. No active bleeding per nursing staff. Richard Lemus- son/medical POA, ([phone]). (+) Constipation. D/W EGD/Colonoscopy, risk vs. benefits. He is unsure if he would want to proceed invasive workup and at this time, would like to wait for the repeat H/H to see if there is any significant drop prior to making a decision. He would like to be called with the repeat HH so that he can make an informed decision. Will await repeat HH and then call son with the results of this. - Syncopal episode, unclear if this is a vagal response vs. r/t blood loss. 11.9/36.4. Rpt. pending. - Chronic constipation. Will start colace, miralax. - EMILY, mild. Per attending. - Afib. Eliquis at home. On hold. Son would like to speak to medical doctor re: possibly stopping this. He is aware of the risk for stroke. - Dementia, LYTTON per attending. PLAN: - Clear liquids - Await CBC - H/H q6h x 3 - CBC, BMP in am - Hold Eliquis for now - PPI - Add colace - Add Miralax - Son would like to be called with repeat HH so he can make an informed decision regarding which direction to go- egd/colonoscopy vs. more conservative approach. - Pt seen and examined by Dr. Lazcano and myself and this note is written on his behalf Rpt. HH stable. Called and updated son/poa. At this time, he would like to hold on any invasive procedures such as egd/colonoscopy. (Salome Gonsalves) Plan Patient was seen and examined, agree with above-noted, we will monitor lab, and the patient will be that we might consider procedure otherwise we will continue supportive care for now (Taye Lazcano MD) Salome Gonsalves Nov 06, 2016 07:48 Taye Lazcano MD Nov 06, 2016 17:31
[2016-11-06] MEDS: PROPAFENONE HCL 150 MG TAB PO SCH ×2 (09:00→21:05)
[2016-11-06] MEDS: DOCUSATE SODIUM 100 MG CAP PO SCH ×2 (09:40→21:05)
[2016-11-06] MEDS: POLYETHYLENE GLYCOL 17 GM PKG PO SCH (09:40)
[2016-11-06] MEDS: PANTOPRAZOLE SOD 40 MG DELAYED RELEASE TAB PO SCH (09:40)
[2016-11-06] MEDS: MEMANTINE HCL 10 MG TAB PO SCH ×2 (09:41→21:05)
[2016-11-06] MEDS: QUEtiapine FUMARATE 25 MG TAB PO SCH ×2 (09:43→21:06)
[2016-11-06] MEDS: RIVASTIGMINE 9.5 MG/24 HOUR PATCH T-DERMAL SCH (09:43)
[2016-11-06 10:24] LABS: HEMATOCRIT 39.9 % (35.0-46.0); MEAN CELL VOLUME 91.3 FL (80.0-100.0); MEAN CORPUSCULAR HGB CONC 32.9 % (32.0-36.0); PLATELET COUNT 185 TH/MM3 (150-450); RED BLOOD COUNT 4.37 MIL/MM3 (4.00-5.30); RED CELL DISTRIBUTION WIDTH 14.1 % (11.6-17.2); REVIEW FLAG FINAL; WHITE BLOOD COUNT 9.5 TH/MM3 (4.0-11.0)
--- NOTE | 2016-11-06 13:46 | HHI.PR ---
Objective Objective Results - Vital Signs Date Time Temp Pulse Resp B/P (MAP) Pulse Ox O2 Delivery O2 Flow Rate FiO2 11/06/16 11:27 98.6 83 16 173/69 (103) 97 11/06/16 09:30 92 11/06/16 08:15 97.9 83 20 176/75 (108) 96 11/06/16 05:46 77 11/06/16 04:30 98.4 74 17 104/67 (79) 97 11/06/16 03:40 97.9 90 16 110/69 (83) 98 Room Air 11/06/16 00:00 77 16 130/58 (82) 100 Room Air 11/05/16 23:51 96 11/05/16 22:00 89 16 139/59 (85) 100 Room Air I/O 11/05/16 11/05/16 11/05/16 11/06/16 11/06/16 11/06/16 07:00 15:00 23:00 07:00 15:00 23:00 Intake Total 1050 ml 1240 ml Balance 1050 ml 1240 ml Intake Oral 240 ml IV Total 1050 ml 1000 ml # Voids 1 (Mackenzie Gruber) Result Diagram: 11/06/16 0955 11/05/16 2335 A/P Assessment and Plan [id number] Possible syncope Possible GI bleed Dementia acute kidney injury HTN, mild DNR (Mackenzie Gruber) Assessment and Plan pt was seen & examined d/w Mackenzie iyer above d/w RN will observe see Orders will f/u (Smith Stone MD) Mackenzie Gruber Nov 06, 2016 13:46 Smith Stone MD Nov 06, 2016 14:48
--- NOTE | 2016-11-06 17:29 | RADRPT ---
EXAM DATE/TIME: 11/06/2016 16:21 [facility] COMPARISON: No previous studies available for comparison. INDICATIONS : Syncope. MEDICAL HISTORY : Atrial fibrillation. Dementia. Syncope. Ulcer. SURGICAL HISTORY : None. ENCOUNTER: Initial ACUITY: 2 days PAIN SCORE: 0/10 LOCATION: Bilateral neck PEAK SYSTOLIC VELOCITIES (cm/sec): ICA/CCA RATIO: Right: 1.1 Left: 1.9 ICA: Right: 70 Left: 86 CCA: Right: 63 Left: 45 ECA: Right: 57 Left: 42 VERTEBRAL: Right: 34 antegrade Left: 46 antegrade Elevated flow velocities and ICA/CCA ratios have been found to correlate with increased degrees of vessel stenosis, calculated as percentage of diameter relative to a normal segment of distal ICA/CCA FINDINGS: RIGHT CAROTID: No significant stenosis is visualized. Prominent calcification in the carotid bulb. The waveforms a re within normal limits. LEFT CAROTID: No significant stenosis is visualized. Mild calcification in the carotid bulb. The waveforms are wi thin normal limits. VERTEBRAL ARTERIES: Antegrade flow is seen in both vertebral arteries. MISCELLANEOUS: None. CONCLUSION: Calcified plaque in the carotid bulb bilaterally, right more prominent than on the left. Hemodynamic parameters suggest less than 50% stenosis. Gonzalo Faustin MD on November 06, 2016 at 17:26 Board Certified Radiologist. This report was verified electronically.
[2016-11-06] MEDS ORDERED: cloNIDine HCL 0.1 MG TAB PO PRN (18:00)
[2016-11-06 18:10] LABS: HEMATOCRIT 37.8 % (35.0-46.0)
[2016-11-06 18:13] LABS: REVIEW FLAG FINAL
[2016-11-06 21:53] LABS: REVIEW FLAG FINAL
[2016-11-07] VITALS (8 sets, daily range): BP systolic 121–186; BP diastolic 67–84; PULSE 75–117; RESP 16–18; TEMP 97.4–98.3; O2SAT 95–98
--- NOTE | 2016-11-07 08:17 | MH ---
cc: GINI STONE MD DATE OF 1925 DATE OF ADMISSION 11/06/2016 This is Mackenzie Gruber, nurse practitioner dictating with Dr. Stone present. REASON FOR ADMISSION Evaluation for syncope. Travel in the last 30 days is none. HISTORY OF THE PRESENT ILLNESS This is an elderly 89-year-old white female who lives in an [place]. She was brought to the emergency room via ambulance for evaluation of a possible syncopal episode. According to report from the ER staff the patient was on the toilet and was found unresponsive. It is unaware whether the patient actually passed out or whether she had a vagal response. It was also noted to have a small amount of bloody bowel movement noted in her diaper change. The patient has a significant history of dementia and very hard of hearing. She is a poor to no historian. Information being gathered by the record. The patient's son Jaron who is not present at this time is the POA and in charge of her care. According to the ER assessment the patient had no chest pain. No shortness of breath. No abdominal pain. Her abdomen was evaluated with light palpation and the patient had no grimace. Her eyes are open. She is awake but otherwise is not oriented to situation. PAST MEDICAL HISTORY Medical history includes: 1. Eliquis. A history of atrial fibrillation. 2. Cardiovascular disease. 3. Dementia. 4. Unknown surgical events. ALLERGIES NONE KNOWN. MEDICATIONS Reported: 1. Seroquel. 2. Vitamins. 3. Calcium. 4. Biotin. 5. Vitamin B12. 6. Quetiapine. 7. Probiotics. 8. Memantine. 9. Exelon patch. SOCIAL HISTORY Currently the patient lives in an [place]. I have no history of alcohol, tobacco or illicit drug use. REVIEW OF SYSTEMS Poor historian, unable to obtain any information. PHYSICAL EXAMINATION VITAL SIGNS: Temperature is 98.6, pulse 83, respirations 16, blood pressure initially on admission was 110/69, is now 173/69. O2 sat 97% currently on room air. GENERAL: The patient is awake, small amount of communication noted but not necessarily related to the conversation. SKIN: [place], warm and dry. HEENT: Atraumatic, normocephalic. JESSE at 3. No scleral icterus. Mucous membranes are pink, moist. NECK: Supple. CARDIOVASCULAR: S1-S2. Rhythm is regular with some mild irregularity. No active murmurs, rubs or gallops. She has no edema in her lower extremities and her extremities are warm to touch. ABDOMEN: Round, soft, nontender, nondistended. Bowel sounds are soft. MUSCULOSKELETAL: No obvious deformities. Moves all extremities with purpose. NEUROLOGIC: Her speech is clear. Mood and affect are within normal limits for now. No increased anxiety noted. DIAGNOSTIC DATA WBC count 9.5, RBC 4.37, hemoglobin 13.1, hematocrit 39.9, platelet count 185. Neutrophil count on admission 84.2, lymphocyte count 8.5. PT INR is 1. Chemistry sodium 142, potassium 4.2, chloride 107, carbon dioxide 27.2, amnion gap 8, BUN 23, creatinine 1.04, GFR 50, random glucose 113. Troponin less than 0.02. Urine is yellow and hazy otherwise uneventful. No culture has been obtained. IMAGING STUDIES Shows chest x-ray and head CT to be within normal ranges for her age. ASSESSMENT AND PLAN 1. Possible syncopal episode unwitnessed. 2. Possible GI bleed. 3. Dementia, end-stage. 4. Acute kidney injury. Our plan is to admit, observation. PUD prophylaxis with Protonix. Bowel regimen as well as stool softeners, laxatives. Reconcile medications as warranted. Vital signs will be q.4h. Restraints if needed. It looks like they have been used in the emergency room setting. We will consult GI for their expert opinion. Currently the patient's hemoglobin is 13.9 which is of increased from the admission of 11.9 even after IV hydration. No scope is planned at this present time. IV access will be maintained. ECG monitoring. Currently the monitor shows sinus rhythm with multiple PACs but no atrial fib noted. We will continue to monitor labs. Place the patient on clear liquid diet this morning and check her tolerance. The patient does have a possible history of some constipation. She was noted to have soft stools, very small amount on admission. It is unknown at this time whether the blood came from possible hemorrhoids or straining but we will monitor any further blood loss. According to the record the patient is DNR/DNI. We will add that to her code status. This was confirmed with her son Jaron according to the staff on admission. Thank you very much we will continue to follow. Dictated by: CHANDA Paul MD PJ Mckeon/KK /1:36 PM /8:15 AM
[2016-11-07 08:18] LABS: AUTOMATED NEUTROPHIL # 8.2 TH/MM3 (1.8-7.7); BASOPHIL % 0.3 % (0.0-2.0); EOSINOPHIL # 0.1 TH/MM3 (0-0.4); EOSINOPHIL % 0.7 % (0.0-4.0); HEMATOCRIT 40.4 % (35.0-46.0); HEMO FLAGS DIFF FINAL; LYMPH % 6.1 % (9.0-44.0); LYMPHOCYTE # 0.6 TH/MM3 (1.0-4.8); MEAN CELL VOLUME 89.8 FL (80.0-100.0); MEAN CORPUSCULAR HEMOGLOBIN 30.1 PG (27.0-34.0); MEAN CORPUSCULAR HGB CONC 33.5 % (32.0-36.0); MONO % 13.1 % (0.0-8.0); NEUT % 79.8 % (16.0-70.0); PLATELET COUNT 145 TH/MM3 (150-450); RED CELL DISTRIBUTION WIDTH 13.7 % (11.6-17.2); WHITE BLOOD COUNT 10.3 TH/MM3 (4.0-11.0)
[2016-11-07 08:34] LABS: BICARBONATE 27.2 MEQ/L (21.0-32.0); POTASSIUM 3.8 MEQ/L (3.5-5.1)
[2016-11-07] MEDS: POLYETHYLENE GLYCOL 17 GM PKG PO SCH (11:08)
[2016-11-07] MEDS: DOCUSATE SODIUM 100 MG CAP PO SCH ×2 (11:08→20:15)
[2016-11-07] MEDS: MEMANTINE HCL 10 MG TAB PO SCH ×2 (11:08→20:10)
[2016-11-07] MEDS: PANTOPRAZOLE SOD 40 MG DELAYED RELEASE TAB PO SCH (11:09)
[2016-11-07] MEDS: QUEtiapine FUMARATE 25 MG TAB PO SCH ×2 (11:09→20:11)
[2016-11-07] MEDS: PROPAFENONE HCL 150 MG TAB PO SCH ×2 (11:10→20:10)
[2016-11-07] MEDS: RIVASTIGMINE 9.5 MG/24 HOUR PATCH T-DERMAL SCH (11:10)
[2016-11-07] MEDS: SODIUM CHLOR 0.9% 1000 ML INJ 1,000 ML IV SCH (12:49)
--- NOTE | 2016-11-07 13:03 | HHI.PR ---
Subjective Subjective Remarks Demented Oriented to self Incontinent of stool, brown, no blood noted Tolerating diet well Difficult to obtain ROS Review of Systems Constitutional Constitutional Remarks Unable to obtain ROS Vitals/Results Vital Signs Vital Signs Date Time Temp Pulse Resp B/P (MAP) Pulse Ox O2 Delivery O2 Flow Rate FiO2 11/07/16 11:30 97.9 90 16 151/73 (99) 98 11/07/16 07:27 97.4 117 18 167/79 (108) 98 11/07/16 03:08 98.0 80 18 139/75 (96) 97 11/06/16 23:36 90 18 135/67 (89) 98 11/06/16 20:03 98.0 93 18 139/66 (90) 98 11/06/16 17:12 98.3 82 16 164/72 (102) 11/06/16 15:45 84 CBC/BMP: 11/07/16 0722 11/07/16 0722 Lab Results Laboratory Tests Test 11/06/16 17:55 11/06/16 21:49 11/07/16 07:22 Hemoglobin 12.4 GM/DL 12.5 GM/DL 13.5 GM/DL Hematocrit 37.8 % 38.0 % 40.4 % White Blood Count 10.3 TH/MM3 Red Blood Count 4.50 MIL/MM3 Mean Corpuscular Volume 89.8 FL Mean Corpuscular Hemoglobin 30.1 PG Mean Corpuscular Hemoglobin Concent 33.5 % Red Cell Distribution Width 13.7 % Platelet Count 145 TH/MM3 Mean Platelet Volume 7.8 FL Neutrophils (%) (Auto) 79.8 % Lymphocytes (%) (Auto) 6.1 % Monocytes (%) (Auto) 13.1 % Eosinophils (%) (Auto) 0.7 % Basophils (%) (Auto) 0.3 % Neutrophils # (Auto) 8.2 TH/MM3 Lymphocytes # (Auto) 0.6 TH/MM3 Monocytes # (Auto) 1.3 TH/MM3 Eosinophils # (Auto) 0.1 TH/MM3 Basophils # (Auto) 0.0 TH/MM3 CBC Comment DIFF FINAL Differential Comment Hematology Comments Blood Urea Nitrogen 12 MG/DL Creatinine 0.67 MG/DL Random Glucose 72 MG/DL Calcium Level 8.2 MG/DL Sodium Level 143 MEQ/L Potassium Level 3.8 MEQ/L Chloride Level 107 MEQ/L Carbon Dioxide Level 27.2 MEQ/L Anion Gap 9 MEQ/L Estimat Glomerular Filtration Rate 83 ML/MIN Physical Exam General General Appearance: Well Developed, Comfortable, Anxious (restless), Malnourished Eyes Eye Exam: Pupils Equal, Pupils Reactive Ears & Nose Ears & Nose Exam: Nasal Mucosa Haskell Throat Throat Exam: Oral Mucosa [place] & Moist Neck Neck Exam: Neck Supple, Trachea Midline Pulmonary Resp Exam: No Distress Cardiology CV Exam: Regular, Good Perfusion Gastrointestinal/Abdomen GI Exam: Soft, Non-Tender, Bowel Sounds Present, Non-Distended Musculoskeletal MS Exam: Joints Intact Extremeties Extremities Exam: No Edema, Pedal Pulses Palpable Neurologic Neuro Exam: Alert, Awake, Speech Clear, Moving All Extremities, Case Finisher Equal Neuro Remarks Demented, at times restless, agitated VTE Prophylaxis VTE Prophylaxis Device: SCDs Assessment/Plan Assessment/Plan ASSESSMENT AND PLAN 1. Possible syncopal episode unwitnessed. 2. Possible GI bleed. 3. Dementia, end-stage. 4. Acute kidney injury. 5. Afib, stable Plan No evidence of GI bleed during hospitalization Appreciate GI input, they spoke to patient's POA and at this time they want to hold off on any invasive procedures H&H stable Okay to Resume Eliquis Initially presented with acute kidney injury, renal function was stable Okay to discontinue IV fluids Encourage by mouth intake No syncopal episodes Continue DNR status Continue home medications Blood pressure better control, on clonidine when necessary Continue with SCDs for DVT prophylaxis Case management for discharge planning Overall, patient stable. No evidence of GI bleed. H&H stable Plan to discharge later this afternoon back to assisted living facility Follow up with PCP Diet heart healthy Activity as tolerated Discussed with RN Discussed with patient Discussed with case management Discussed with attending This patient was seen by myself and Dr. Stone, this note is written on his behalf Discharge Minutes: 40 Siri Beth Nov 07, 2016 13:03
--- NOTE | 2016-11-07 13:12 | HHI.DCPOC ---
Discharge Care Plan Diagnosis: (1) GI bleed Your Health Problems Are: Irregular Bowel Function Goals to Promote Your Health * To prevent worsening of your condition and complications * To maintain your health at the optimal level Directions to Meet Your Goals Take your medications as prescribed Follow your dietary instruction Follow activity as directed Keep your appointments as scheduled Take your immunizations and boosters as scheduled If your symptoms worsen call your PCP, if no PCP go to Urgent Care Center or Emergency Room Smoking is Dangerous to Your Health. Avoid second hand smoke Call the 24-hour hour crisis hotline for domestic abuse at Siri Beth Nov 07, 2016 13:12
--- NOTE | 2016-11-07 16:56 | ECHRPT ---
Indication: syncope CONCLUSIONS The left ventricular systolic function is normal with an estimated ejection fraction in the range of 55-60%. Normal left ventricular size. There is a 1.1x 1.6 mass seen in left atrium Mild mitral valve regurgitation. There is mild tricuspid valve regurgitation. The estimated pulmonary arterial pressure is 29.2 mmHg. BP: / HR: Rhythm: MEASUREMENTS (Male / Female) Normal Values Technical Quality: 2D ECHO LV Diastolic Diameter PLAX 3.2 cm 4.2 - 5.9 / 3.9 - 5.3 cm LV Systolic Diameter PLAX 2.4 cm IVS Diastolic Thickness 1.7 cm 0.6 - 1.0 / 0.6 - 0.9 cm LVPW Diastolic Thickness 0.7 cm 0.6 - 1.0 / 0.6 - 0.9 cm LV Relative Wall Thickness 0.8 RV Internal Dim ED PLAX 2.0 cm M-MODE Aortic Root Diameter MM 2.9 cm LA Systolic Diameter MM 3.2 cm LA Ao Ratio MM 1.1 AV Cusp Separation MM 1.4 cm DOPPLER LV E' Lateral Velocity 6.9 cm/s LV E' Septal Velocity 6.7 cm/s TR Peak Velocity 219.0 cm/s TR Peak Gradient 19.2 mmHg Right Atrial Pressure 10.0 mmHg Pulmonary Artery Systolic Pressu 29.2 mmHg Right Ventricular Systolic Press 29.2 mmHg FINDINGS LEFT VENTRICLE The left ventricular systolic function is normal with an estimated ejection fraction in the range of 55-60%. Normal left ventricular size. RIGHT VENTRICLE Normal right ventricular size and systolic function. LEFT ATRIUM There is a 1.1x 1.6 mass seen in left atrium RIGHT ATRIUM The right atrial size is normal. ATRIAL SEPTUM Normal atrial septal thickness without atrial level shunting by limited color doppler interrogation. AORTA The aortic root and proximal ascending aorta are normal in size on limited imaging. MITRAL VALVE Structurally normal mitral valve. Mild mitral valve regurgitation. AORTIC VALVE Trileaflet aortic valve. TRICUSPID VALVE Structurally normal tricuspid valve. There is mild tricuspid valve regurgitation. The estimated pulmonary arterial pressure is 29.2 mmHg. PULMONARY VALVE No pulmonary valve regurgitation or stenosis. VESSELS The inferior vena cava is normal in size. PERICARDIUM No pericardial effusion. Moisés Hall MD (Electronically Signed) Final Date:07 November 2016 16:56
[2016-11-08 00:02] VITALS: PULSE 72
--- NOTE | 2016-11-08 00:03 | MG ---
cc: JULIA COLLIER M.D. Sex: F DATE OF STUDY: 11/06/2016 [id number] TECHNIQUE 17 channel EEG. DESCRIPTION Background rhythm is a symmetrical alpha rhythm, frequency 8-9 Hz, amplitude is about 20 microvolts. There is some slowing in the theta range during drowsiness. No lateralizing features identified. Photic stimulation results in a normal driving response. The patient does appear to be asleep and there is sleep spindles present. There is some eye movement artifact present. INTERPRETATION This is a normal EEG. MD KAYLYNN Rene/BOBBY /9:10 PM /11:58 PM
[2016-11-08 03:45] VITALS: PULSE 76
[2016-11-08 03:46] VITALS: BP 126/75; PULSE 72; RESP 18; TEMP 98; O2SAT 97
[2016-11-08] MEDS: SODIUM CHLOR 0.9% 1000 ML INJ 1,000 ML IV SCH (07:34)
[2016-11-08 07:36] VITALS: BP 174/74; PULSE 88; RESP 17; TEMP 97.5; O2SAT 100
[2016-11-08] MEDS: PANTOPRAZOLE SOD 40 MG DELAYED RELEASE TAB PO SCH (08:03)
[2016-11-08] MEDS: PROPAFENONE HCL 150 MG TAB PO SCH (08:03)
[2016-11-08] MEDS: MEMANTINE HCL 10 MG TAB PO SCH (08:03)
[2016-11-08] MEDS: QUEtiapine FUMARATE 25 MG TAB PO SCH (08:04)
[2016-11-08] MEDS: RIVASTIGMINE 9.5 MG/24 HOUR PATCH T-DERMAL SCH (08:04)
[2016-11-08] MEDS: DOCUSATE SODIUM 100 MG CAP PO SCH (08:08)
[2016-11-08] MEDS: POLYETHYLENE GLYCOL 17 GM PKG PO SCH (08:08)
--- NOTE | 2016-11-08 09:27 | HHI.PR ---
Subjective Subjective Remarks Demented Oriented to self Incontinent of stool, brown, no blood noted Tolerating diet well Difficult to obtain ROS no acute changes overnight Review of Systems Constitutional Constitutional Remarks Unable to obtain ROS Vitals/Results Vital Signs Vital Signs Date Time Temp Pulse Resp B/P (MAP) Pulse Ox O2 Delivery O2 Flow Rate FiO2 11/08/16 07:36 97.5 88 17 174/74 (107) 100 11/08/16 03:46 98.0 72 18 126/75 (92) 97 11/08/16 03:45 76 11/08/16 00:02 72 11/07/16 23:38 98.0 75 18 121/67 (85) 96 11/07/16 20:47 93 11/07/16 19:34 98.0 95 18 150/70 (96) 95 11/07/16 18:33 183/77 (112) 11/07/16 15:14 98.3 87 16 186/84 (118) 97 11/07/16 11:30 97.9 90 16 151/73 (99) 98 CBC/BMP: 11/07/16 0722 11/07/16 0722 Physical Exam General General Appearance: Well Developed, Comfortable, Anxious (restless), Malnourished Eyes Eye Exam: Pupils Equal, Pupils Reactive Ears & Nose Ears & Nose Exam: Nasal Mucosa [place] Throat Throat Exam: Oral Mucosa [place] & Moist Neck Neck Exam: Neck Supple, Trachea Midline Pulmonary Resp Exam: No Distress Cardiology CV Exam: Regular, Good Perfusion Gastrointestinal/Abdomen GI Exam: Soft, Non-Tender, Bowel Sounds Present, Positive Bowel Movement, Non- Distended Musculoskeletal MS Exam: Joints Intact Extremeties Extremities Exam: No Edema, Pedal Pulses Palpable Neurologic Neuro Exam: Alert, Awake, Speech Clear, Moving All Extremities, Survey Associate Equal Neuro Remarks Demented, at times restless, agitated VTE Prophylaxis VTE Prophylaxis Device: SCDs Assessment/Plan Assessment/Plan ASSESSMENT AND PLAN 1. Possible syncopal episode unwitnessed. 2. Possible GI bleed. 3. Dementia, end-stage. 4. Acute kidney injury. 5. Afib, stable 6. Left atrial mass 7. Elevated BP Plan No evidence of GI bleed during hospitalization Appreciate GI input, they spoke to patient's POA and at this time they want to hold off on any invasive procedures H&H stable Okay to Resume Eliquis Initially presented with acute kidney injury, renal function was stable Encourage by mouth intake No syncopal episodes work up done EEG normal carotid US done, no significant stenosis, plaquing noted Echo EF 55 to 60% with findings of 1.1 x 1.6 cm left atrium mass- above advanced age, multiple comorbidities. Not likely to benefit from any type of surgical procedure. Attending has spoken to patient's son yesterday, he will call today to update on echo and EEG findings Continue DNR status Continue home medications Blood pressure better control, on clonidine when necessary Continue with SCDs for DVT prophylaxis Case management for discharge planning Overall, patient stable. No evidence of GI bleed. H&H stable Plan to discharge later this afternoon back to assisted living facility Follow up with PCP Diet heart healthy Activity as tolerated Discussed with RN Discussed with patient Discussed with attending This patient was seen by myself and Dr. Stone, this note is written on his behalf Siri Beth Nov 08, 2016 09:27
[2016-11-08 11:44] VITALS: BP 174/72; PULSE 84; RESP 18; TEMP 97.4; O2SAT 99
--- NOTE | 2016-11-08 15:22 | HHI.DS ---
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 (4) Dementia ICD Codes: F03.90 - Unspecified dementia without behavioral disturbance Status: Chronic (5) Atrial fibrillation ICD Codes: I48.91 - Unspecified atrial fibrillation Status: Chronic CBC/BMP: 11/07/16 0722 11/07/1622 Significant Findings Laboratory Tests Test 11/05/16 23:35 11/06/16 09:55 11/06/16 17:55 11/06/16 21:49 Neutrophils (%) (Auto) 84.2 % (16.0-70.0) Lymphocytes (%) (Auto) 8.5 % (9.0-44.0) Neutrophils # (Auto) 8.3 TH/MM3 (1.8-7.7) Lymphocytes # (Auto) 0.8 TH/MM3 (1.0-4.8) Activated Partial Thromboplast Time 24.0 SEC (24.3-30.1) Urine Turbidity HAZY (CLEAR) Urine Leukocyte Esterase TRACE (NEG) Urine Mucus FEW /lpf (OCC) Blood Urea Nitrogen 23 MG/DL (7-18) Creatinine 1.04 MG/DL (0.50-1.00) Random Glucose 113 MG/DL (74-106) Estimat Glomerular Filtration Rate 50 ML/MIN (>89) Troponin I LESS THAN 0.02 NG/ML Test 11/07/16 07:22 Platelet Count 145 TH/MM3 (150-450) Neutrophils (%) (Auto) 79.8 % (16.0-70.0) Lymphocytes (%) (Auto) 6.1 % (9.0-44.0) Monocytes (%) (Auto) 13.1 % (0.0-8.0) Neutrophils # (Auto) 8.2 TH/MM3 (1.8-7.7) Lymphocytes # (Auto) 0.6 TH/MM3 (1.0-4.8) Monocytes # (Auto) 1.3 TH/MM3 (0-0.9) Random Glucose 72 MG/DL (74-106) Calcium Level 8.2 MG/DL (8.5-10.1) Estimat Glomerular Filtration Rate 83 ML/MIN (>89) Hospital Course This is an elderly 89-year-old white female who lives in an CUSTOD[facility]. She was brought to the emergency room via ambulance for evaluation of a possible syncopal episode. According to report from the ER staff the patient was on the toilet and was found unresponsive. It is not known whether the patient actually passed out or whether she had a vagal response. It was also noted to have a small amount of bloody bowel movement noted in her diaper change. The patient has a significant history of dementia and very hard of hearing. She was a poor historian. Information was gathered by the record. The patient's son Jaron was not present. According to the ER assessment the patient had no chest pain. No shortness of breath. No abdominal pain. Her abdomen was evaluated with light palpation and the patient had no grimace. Her eyes are open. She is awake but otherwise is not oriented to situation. Was evaluated in the ED. DIAGNOSTIC DATA WBC count 9.5, RBC 4.37, hemoglobin 13.1, hematocrit 39.9, platelet count 185. Neutrophil count on admission 84.2, lymphocyte count 8.5. PT INR is 1. Chemistry sodium 142, potassium 4.2, chloride 107, carbon dioxide 27.2, amnion gap 8, BUN 23, creatinine 1.04, GFR 50, random glucose 113. Troponin less than 0.02. Urine is yellow and hazy otherwise uneventful. No culture has been obtained. IMAGING STUDIES Shows chest x-ray and head CT to be within normal ranges for her age. Patient was admitted, during the hospital course the following took place: 1. Possible syncopal episode unwitnessed. 2. Possible GI bleed. 3. Dementia, end-stage. 4. Acute kidney injury. 5. Afib, stable 6. Left atrial mass 7. Elevated BP Patient was put on IV fluid, continuous cardiac telemetry was ordered. Eliquis held initially. GI was consulted. H&H remained stable. No evidence of GI bleed during hospitalization. No evidence of GI bleed during hospitalization Appreciated GI input, they spoke to patient's POA and at this time they want to hold off on any invasive procedures H&H stable was Okay to Resume Eliquis Patient had no further syncopal episodes Syncopal workup was done. EEG normal carotid US done, no significant stenosis, plaquing noted Echo EF 55 to 60% with findings of 1.1 x 1.6 cm left atrium mass-patient had a known atrial myxoma. Not a surgical candidate due to advanced age and comorbidities. Son did not want any invasive procedures. Initially presented with acute kidney injury, renal function improved. Was given IVF End-of-life care issues were addressed, DNR status resumed. Continued home medications Blood pressure better controlled, on clonidine when necessary Ordered SCDs for DVT prophylaxis Case management for discharge planning Overall, patient stable. No evidence of GI bleed. H&H stable Discharged to assisted living facility Follow up with PCP Diet heart healthy Activity as tolerated Pt Condition on Discharge: Stable Discharge Disposition: [facility] Discharge Instructions DIET: Follow Instructions for: Heart Healthy Diet Activities you can perform: Weight Bearing as Denise Other Activity Instructions: FALL PRECAUTIONS Follow up Referrals: PCP Follow-up Continued Medications: Apixaban (Eliquis) 2.5 Mg Tab 2.5 MG PO BID for Blood Clot Prevention, TAB 0 Refills Biotin (Biotin) 10 Mg Tab 10 MG PO BID for Nutritional Supplement, #1 BOTTLE 0 Refills Calcium Carbonate-Vitamin D W/Minerals (Calcium 600+D Plus Minerals) 600-400 Mg- Unit Tab 1 TAB PO BID for Nutritional Supplement, TAB 0 Refills Cyanocobalamin (Vitamin B-12) 1,000 Mcg Tab 1000 MCG PO DAILY for Nutritional Supplement, #1 BOTTLE 0 Refills Lactobacillus Acidophilus (Probiotic) 10 Billion Cell Cap 1 CAP PO BID for Nutritional Supplement, #90 CAP 0 Refills Memantine (Memantine) 10 Mg Tab 10 MG PO BID for Alzheimer's Dementia, TAB 0 Refills Multiple Vitamins W/ Minerals (Centrum Silver) 400 Mcg-250 Mcg Chw 1 TAB PO DAILY Propafenone (Propafenone) 150 Mg Tab 150 MG PO BID for Regulate Heart Beat, #90 TAB 0 Refills Quetiapine (Quetiapine) 25 Mg Tab 12.5 MG PO DAILY, #30 TAB 0 Refills Quetiapine (Quetiapine) 25 Mg Tab 50 MG PO HS, #30 TAB 0 Refills Quetiapine (Seroquel) 25 Mg Tab 12.5 MG PO BID PRN for AGITATION, #60 TAB 0 Refills Rivastigmine Patch (Exelon Patch) 9.5 mg/24 hr Patch 1 PATCH T-DERMAL DAILY for Dementia, #30 PATCH 0 Refills Siri Beth [facility] Nov 08, 2016 15:22
== END 2016-11-08 14:38 ==
LOC: NEPC 21:21 → NEDA 11-06 01:50 → NEPHCDU 11-06 04:21
PROVIDERS: ADMIT Specialist; ATTEND Specialist
DX: R55 Syncope and collapse (principal); K92.2 Gastrointestinal hemorrhage, unspecified; F03.90 Unspecified dementia, unspecified severity, without behavioral disturbance, psychotic disturbance, mood disturbance, and anxiety; N17.9 Acute kidney failure, unspecified; H91.90 Unspecified hearing loss, unspecified ear; I48.91 Unspecified atrial fibrillation; D15.1 Benign neoplasm of heart; I10 Essential (primary) hypertension; I49.8 Other specified cardiac arrhythmias; R15.9 Full incontinence of feces; K59.00 Constipation, unspecified; Z79.899 Other long term (current) drug therapy; Z79.01 Long term (current) use of anticoagulants; Z66 Do not resuscitate
CPT/HCPCS: 70450; 71010; 80048; 80053; 81001; 82550; 82552; 83735; 84484; 85014; 85018; 85025; 85027; 85610; 85730; 86850; 86900; 86901; 87040; 93005; 93306; 93880; 95819; 96360; 96361; 99285; G0378; J7030; P9612

== ENCOUNTER 2016-11-14 13:22 | Inpatient (IN) | payer MEDICARE ==
[2016-11-14] VITALS (9 sets, daily range): BP systolic 110–155; BP diastolic 58–74; PULSE 67–85; RESP 14–16; TEMP 96.4–97; O2SAT 98–100
[2016-11-14] MEDS ORDERED: DEXTROSE 50% IN WATER 50 ML SYRINGE IV PUSH ONE ×2 (13:30→15:00)
[2016-11-14] MEDS ORDERED: NALOXONE HCL 2 MG/2 ML VIAL IV PUSH ONE (13:30)
[2016-11-14] MEDS ORDERED: SODIUM CHLORIDE 0.9% FLUSH 5 ML FLUSH IV FLUSH PRN (13:30)
--- NOTE | 2016-11-14 13:32 | PD ---
HPI Chief Complaint: AMS Time Seen by Provider: 13:25 Travel History International Travel<30 days: No Contact w/Intl Traveler<30days: No Traveled to known affect area: No History of Present Illness HPI PATIENT FOUND UNRESPONSIVE WHILE AT [place], WAS LAST SEEN NORMAL AT 11AM TODAY, EMS BROUGHT PATIENT IN, GAVE .4MG OF NARCAN WITHOUT CHANGE, PATIENT HAD PULSE/BP AND SOME SPONT BREATHING....BUT NOT ALERT DR SEVERINO AFIB, DEMENTIA, PFSH Past Medical History Hx Anticoagulant Therapy: Yes (Eliquise) Atrial Fibrillation: Yes Cardiovascular Problems: Yes (AFIB) Dementia: Yes (Lewy Body) Diminished Hearing: Yes Ulcer: Yes Menopausal: Yes : 4 Para: 4 Social History Alcohol Use: No Tobacco Use: No Substance Use: No Allergies-Medications (Allergen,Severity, Reaction): Coded Allergies: No Known Allergies (Unverified , 11/14/16) Reported Meds & Prescriptions Reported Meds & Active Scripts Active Reported Seroquel (Quetiapine Fumarate) 25 Mg Tab 12.5 Mg PO BID PRN Quetiapine (Quetiapine Fumarate) 25 Mg Tab 50 Mg PO HS Centrum Silver (Multiple Vitamins W/ Minerals) 400 Mcg-250 Mcg Chw 1 Tab PO DAILY Calcium 600+D Plus Minerals (Calcium Carbonate-Vitamin D W/Minerals) 600-400 Mg- Unit Tab 1 Tab PO BID Biotin 10 Mg Tab 10 Mg PO BID Quetiapine (Quetiapine Fumarate) 25 Mg Tab 12.5 Mg PO DAILY Propafenone (Propafenone HCl) 150 Mg Tab 150 Mg PO BID Probiotic (Lactobacillus Acidophilus) 10 Billion Cell Cap 1 Cap PO BID Memantine 10 Mg Tab 10 Mg PO BID Exelon Patch (Rivastigmine) 9.5 mg/24 hr Patch 1 Patch T-DERMAL DAILY Eliquis (Apixaban) 2.5 Mg Tab 2.5 Mg PO BID Review of Systems ROS Limitations: Altered Mental Status Except as stated in HPI: all other systems reviewed are Neg Physical Exam Exam Limitations: Altered Mental Status Narrative GENERAL: SKIN: Warm and dry. HEAD: Atraumatic. Normocephalic. EYES: Pupils PINPOINT, POORLY REACTIVE ENT: No nasal bleeding or discharge. Mucous membranes pink and moist. NECK: Trachea midline. No JVD. CARDIOVASCULAR: Regular rate and rhythm. RESPIRATORY: No accessory muscle use. Clear to auscultation. Breath sounds equal bilaterally. RR AROUND 12 GASTROINTESTINAL: Abdomen soft, non-tender, nondistended. Hepatic and splenic margins not palpable. MUSCULOSKELETAL: Extremities without clubbing, cyanosis, or edema. No obvious deformities. NEUROLOGICAL SOMNOLENT, NOT AROUSABLE TO CHEST RUB Data Data Last Documented VS Orders Orders Electrocardiogram (11/14/16:) Ammonia (11/14/16:) Complete Blood Count With Diff (11/14/16:) Comprehensive Metabolic Panel (11/14/16) Prothrombin Time / Inr (Pt) (11/14/16) Act Partial Throm Time (Ptt) (11/14/16) Troponin I (11/14/16) Urinalysis - C+S If Indicated (11/14/16:) Lactic Acid Sepsis Protocol (11/14/16:) Blood Culture (11/14/16:) Chest, Single Ap (11/14/16:) Ct Brain W/O Iv Contrast(Rout) (11/14/16:26) Blood Glucose (11/14/16:) Ecg Monitoring (11/14/16:) Iv Access Insert/Monitor (11/14/16) Oximetry (11/14/16:) Naloxone Inj (Narcan Inj) (11/14/16 13:30) Sodium Chloride 0.9% Flush (Ns Flush) (11/14/16 13:30) Dextrose 50% In Anabel (Vial) Inj (D50w (Vi (11/14/16 13:45) Dextrose 50% In Anabel (Syr) Inj (D50w (Syr (11/14/16 15:00) Admit Order (Ed Use Only) (11/14/16 15:33) Labs Laboratory Tests Test 11/14/16 13:30 11/14/16 14:42 White Blood Count 9.4 TH/MM3 Red Blood Count 4.29 MIL/MM3 Hemoglobin 12.7 GM/DL Hematocrit 38.3 % Mean Corpuscular Volume 89.1 FL Mean Corpuscular Hemoglobin 29.6 PG Mean Corpuscular Hemoglobin Concent 33.2 % Red Cell Distribution Width 13.0 % Platelet Count 214 TH/MM3 Mean Platelet Volume 7.3 FL Neutrophils (%) (Auto) 81.2 % Lymphocytes (%) (Auto) 7.2 % Monocytes (%) (Auto) 8.2 % Eosinophils (%) (Auto) 0.3 % Basophils (%) (Auto) 3.1 % Neutrophils # (Auto) 7.6 TH/MM3 Lymphocytes # (Auto) 0.7 TH/MM3 Monocytes # (Auto) 0.8 TH/MM3 Eosinophils # (Auto) 0.0 TH/MM3 Basophils # (Auto) 0.3 TH/MM3 CBC Comment DIFF FINAL Differential Comment Prothrombin Time 10.4 SEC Prothromb Time International Ratio 0.9 RATIO Activated Partial Thromboplast Time 21.0 SEC Blood Urea Nitrogen 17 MG/DL Creatinine 0.84 MG/DL Random Glucose 98 MG/DL Total Protein 7.0 GM/DL Albumin 3.4 GM/DL Calcium Level 8.5 MG/DL Alkaline Phosphatase 80 U/L Aspartate Amino Transf (AST/SGOT) 27 U/L Alanine Aminotransferase (ALT/SGPT) 29 U/L Total Bilirubin 0.4 MG/DL Sodium Level 140 MEQ/L Potassium Level 3.3 MEQ/L Chloride Level 101 MEQ/L Carbon Dioxide Level 32.6 MEQ/L Anion Gap 6 MEQ/L Estimat Glomerular Filtration Rate 64 ML/MIN Magnesium Level 1.9 MG/DL Troponin I LESS THAN 0.02 NG/ML Lactic Acid Level 2.3 mmol/L Ammonia 25 MCMOL/L [facility] Medical Decision Making Medical Screen Exam Complete: Yes Emergency Medical Condition: Yes Medical Record Reviewed: Yes Interpretation(s) NSR 67, NL INTERVALS, NO STEMI PATTERN Differential Diagnosis ICH V SEPSIS V OD V ANEMIA V DEHYDRATION V SOMNOLENCE Narrative Course PATIENT IS A DNR, ARRIVED VERY SOMNOLENT BUT WITH STABLE VITALS AND SPONT RESPIRATIONS. NO RESPONSE TO D50 OR TO NARCAN, SUPPLEMENTAL OXYGEN PROVIDED. OVER THE NEXT HR OR SO PATIENT STARTED TO LOCALIZE TO PAIN (STERNAL RUB) MOVING BOTH UPPER EXTREMITIES AND WITHDRAWING LEXIS LE, PRESENT CORNEAL REFLEX, PRESENT GAG REFLEX Critical Care Narrative CRITICAL CARE NOTE: With evaluation of the patient, labs, EKG, receipt of radiologic studies, administration of medications, reevaluation the patient and discussion of the patient with the admitting physicians, the total critical care time was [60] minutes. Time to perform other separately billable procedures was not included in the critical care time. Diagnosis Primary Impression: AMS Admitting Information Admitting Physician Requests: Admit Rodrick Rosenthal MD Nov 14, 2016 13:32
[2016-11-14] MEDS ORDERED: DEXTROSE 50% IN WATER 50 ML VIAL(D50) IV PUSH ONE (13:45)
[2016-11-14 13:50] LABS: AUTOMATED NEUTROPHIL # 7.6 TH/MM3 (1.8-7.7); BASOPHIL # 0.3 TH/MM3 (0-0.2); BASOPHIL % 3.1 % (0.0-2.0); EOSINOPHIL % 0.3 % (0.0-4.0); HEMATOCRIT 38.3 % (35.0-46.0); LYMPH % 7.2 % (9.0-44.0); LYMPHOCYTE # 0.7 TH/MM3 (1.0-4.8); MEAN CELL VOLUME 89.1 FL (80.0-100.0); MEAN CORPUSCULAR HEMOGLOBIN 29.6 PG (27.0-34.0); MEAN CORPUSCULAR HGB CONC 33.2 % (32.0-36.0); MONO % 8.2 % (0.0-8.0); NEUT % 81.2 % (16.0-70.0); PLATELET COUNT 214 TH/MM3 (150-450); RED BLOOD COUNT 4.29 MIL/MM3 (4.00-5.30); WHITE BLOOD COUNT 9.4 TH/MM3 (4.0-11.0)
[2016-11-14 13:51] LABS: HEMO FLAGS DIFF FINAL
[2016-11-14 13:59] LABS: CHLORIDE 101 MEQ/L (98-107); POTASSIUM 3.3 MEQ/L (3.5-5.1); SODIUM (NA) 140 MEQ/L (136-145)
[2016-11-14 14:02] LABS: ANION GAP 6 MEQ/L (5-15); BICARBONATE 32.6 MEQ/L (21.0-32.0)
[2016-11-14 14:03] LABS: BLOOD UREA NITROGEN 17 MG/DL (7-18)
[2016-11-14 14:05] LABS: ALT (GPT) 29 U/L (10-53)
[2016-11-14 14:06] LABS: AST (GOT) 27 U/L (15-37); GLOMERULAR FILTRATION RATE 64 ML/MIN (>89)
[2016-11-14 14:07] LABS: TOTAL BILIRUBIN ADULT 0.4 MG/DL (0.2-1.0)
[2016-11-14 14:08] LABS: ALKALINE PHOSPHATASE 80 U/L (45-117)
[2016-11-14 14:09] LABS: INTERNATIONAL NORMALIZED RATIO 0.9 RATIO; PROTHROMBIN TIME - PATIENT 10.4 SEC (9.8-11.6)
--- NOTE | 2016-11-14 14:39 | RADRPT ---
EXAM DATE/TIME: 11/14/2016 13:47 [facility] COMPARISON: CHEST SINGLE AP, November 05, 2016, 22:29. INDICATIONS : Short of Breath MEDICAL HISTORY : Unobtainable SURGICAL HISTORY : Unobtainable ENCOUNTER: Initial ACUITY: 1 day PAIN SCORE: Non-responsive. LOCATION: Bilateral chest FINDINGS: The heart is at the upper limits of normal in size. The mediastinal contours are within normal limits . There are moderate COPD changes. The visualized bony structures are grossly intact. CONCLUSION: COPD changes. Stable compared to prior exam. Max Powers MD on November 14, 2016 at 14:37 Board Certified Radiologist. This report was verified electronically.
--- NOTE | 2016-11-14 15:42 | RADRPT ---
EXAM DATE/TIME: 11/14/2016 15:25 [facility] COMPARISON: CT BRAIN W/O CONTRAST, November 05, 2016, 22:18. INDICATIONS : Found unresponsive. RADIATION DOSE: 10.2 CTDIvol (mGy) MEDICAL HISTORY : Anticoagulant therapy. SURGICAL HISTORY : Non-responsive. ENCOUNTER: Initial ACUITY: 1 day PAIN SCALE: Non-responsive LOCATION: cranial TECHNIQUE: Multiple contiguous axial images were obtained of the head. Using automated exposure control and adj ustment of the mA and/or kV according to patient size, radiation dose was kept as low as reasonably a chievable to obtain optimal diagnostic quality images. DICOM format image data is available electro nically for review and comparison. FINDINGS: CEREBRUM: The ventricles are normal for age. No evidence of midline shift, mass lesion, hemorrhage or acute in farction. No extra-axial fluid collections are seen. Minimal basalganglia calcifications are eviden t. POSTERIOR FOSSA: The cerebellum and brainstem are intact. The 4th ventricle is midline. The cerebellopontine angle i s unremarkable. EXTRACRANIAL: The visualized portion of the orbits is intact. SKULL: The calvaria is intact. No evidence of skull fracture. CONCLUSION: Negative for an acute process. Kurtis Powers MD FACR on November 14, 2016 at 15:40 Board Certified Radiologist. This report was verified electronically.
[2016-11-14] MEDS ORDERED: SODIUM CHLOR 0.9% 1000 ML INJ 1,000 ML IV SCH (16:45)
[2016-11-14 16:54] LABS: LACTIC ACID GHOST NOT REPORTABLE
--- NOTE | 2016-11-14 16:54 | HHI.HP ---
[facility] Service [facility] Primary Care Physician Abdelrahman Teran MD, PhD Admission Diagnosis AMS Diagnoses: Chief Complaint: Altered mental status Travel History International Travel<30 Days: No Contact w/Intl Traveler <30 Da: No Traveled to Known Affected Are: No History of Present Illness Patient is an 89-year-old female with a history of Lewy body dementia and atrial fibrillation who was brought in from her assisted living facility due to change in mental status. Early she suddenly became somnolent and unresponsive. She is not in the emergency room and did have a CT of the head as well as some labs which were concerning for hypokalemia. CT of the head and chest x- ray were unremarkable. Patient has been incontinent of urine here. She was also admitted to the hospital earlier this month and discharged 11/09 with similar symptoms and the syncopal episode. Workup at that time was unremarkable other than echocardiogram which showed an apical cardiac mass on echocardiogram. Patient's family has been contacted. And order to DO NOT RESUSCITATE is accompanying the patient. She has been admitted for further evaluation Review of Systems ROS Limitations: Altered Mental Status Past Family Social History Past Medical History Atrial fibrillation Dementia, Lewy body Past Surgical History Unknown Reported Medications Reviewed in the EMR Allergies: Coded Allergies: No Known Allergies (Unverified , 11/14/16) Active Ordered Medications Reviewed and the EMR Family History Unknown Social History From assisted living facility, otherwise unknown Physical Exam Vital Signs Vital Signs Date Time Temp Pulse Resp B/P (MAP) Pulse Ox O2 Delivery O2 Flow Rate FiO2 11/14/16 16:08 97.0 85 14 120/74 (89) 100 Non-Rebreather 15.00 11/14/16 15:00 72 14 110/58 (75) 100 Non-Rebreather 15.00 11/14/16 14:00 96.4 68 14 155/70 (98) 100 Non-Rebreather 15.00 11/14/16 13:30 65 14 100 Non-Rebreather 15.00 11/14/16 13:25 14 100 Non-Rebreather 15.00 11/14/16 13:25 67 14 132/71 (91) 98 11/14/16 13:15 100 Non-Rebreather 15.00 100 Physical Exam GENERAL: This is a frail somnolent elderly female SKIN: No rashes, ecchymoses or lesions. Cool and dry. HEAD: Atraumatic. Normocephalic. No temporal or scalp tenderness. EYES: Pinpoint. Unable to assess extraocular motions appreciable. No scleral icterus. No injection or drainage. ENT: Nose without bleeding, purulent drainage or septal hematoma. Throat without erythema, tonsillar hypertrophy or exudate. Uvula midline. Airway patent. NECK: Trachea midline. No JVD or lymphadenopathy. Supple, nontender, no meningeal signs. CARDIOVASCULAR: Regular rate and sinus rhythm without murmurs, gallops, or rubs. RESPIRATORY: Clear to auscultation. Breath sounds equal bilaterally. No wheezes , rales, or rhonchi. GASTROINTESTINAL: Abdomen soft, non-tender, nondistended. No hepato-splenomegaly , or palpable masses. No guarding. MUSCULOSKELETAL: Extremities without clubbing, cyanosis, or edema. No joint tenderness, effusion, or edema noted. No calf tenderness. Negative Homans sign bilaterally. NEUROLOGICAL: Responds to sternal rub, moves all 4 extremities in response to pain Laboratory Laboratory Tests Test 11/14/16 13:30 11/14/16 14:42 White Blood Count 9.4 Red Blood Count 4.29 Hemoglobin 12.7 Hematocrit 38.3 Mean Corpuscular Volume 89.1 Mean Corpuscular Hemoglobin 29.6 Mean Corpuscular Hemoglobin Concent 33.2 Red Cell Distribution Width 13.0 Platelet Count 214 Mean Platelet Volume 7.3 Neutrophils (%) (Auto) 81.2 Lymphocytes (%) (Auto) 7.2 Monocytes (%) (Auto) 8.2 Eosinophils (%) (Auto) 0.3 Basophils (%) (Auto) 3.1 Neutrophils # (Auto) 7.6 Lymphocytes # (Auto) 0.7 Monocytes # (Auto) 0.8 Eosinophils # (Auto) 0.0 Basophils # (Auto) 0.3 CBC Comment DIFF FINAL Differential Comment Prothrombin Time 10.4 Prothromb Time International Ratio 0.9 Activated Partial Thromboplast Time 21.0 Blood Urea Nitrogen 17 Creatinine 0.84 Random Glucose 98 Total Protein 7.0 Albumin 3.4 Calcium Level 8.5 Alkaline Phosphatase 80 Aspartate Amino Transf (AST/SGOT) 27 Alanine Aminotransferase (ALT/SGPT) 29 Total Bilirubin 0.4 Sodium Level 140 Potassium Level 3.3 Chloride Level 101 Carbon Dioxide Level 32.6 Anion Gap 6 Estimat Glomerular Filtration Rate 64 Troponin I LESS THAN 0.02 Lactic Acid Level 2.3 Ammonia 25 Date/Time Source Procedure Growth Status 11/14/16 14:45 Blood Peripheral Aerobic Blood Culture Pending Received 11/14/16 14:45 Blood Peripheral Anaerobic Blood Culture Pending Received Result Diagram: 11/14/16 1330 11/14/16 1330 Imaging Last Impressions Head CT 11/14/161325 Signed Impressions: Service Date/Time: Monday, November 14, 2016 15:25 - CONCLUSION: Negative for an acute process. Kurtis Powers MD FACR Chest X-Ray 11/14/161325 Signed Impressions: Service Date/Time: Monday, November 14, 2016 13:47 - CONCLUSION: COPD changes. Stable compared to prior exam. Max Powers MD Captungi VTE Risk Assessment Caprini VTE Risk Assessment: Mod/High Risk (score >= 2) VTE Pharm Contraindication: Caprini Risk Assessment Model Point Value = 1 Point Value = 2 Point Value = 3 Point Value = 5 Age 41-60 Minor surgery BMI > 25 kg/m2 Swollen legs Varicose veins or History of unexplained or recurrent spontaneous Oral contraceptives or hormone replacement Sepsis (< 1 month) Serious lung disease, including pneumonia (< 1 month) Abnormal pulmonary function Acute myocardial infarction Congestive heart failure (< 1 month) History of inflammatory bowel disease Medical patient at bed rest Age 61-74 Arthroscopic surgery Major open surgery (> 45 min) Laparoscopic surgery (> 45 min) Malignancy Confined to bed (> 72 hours) Immobilizing plaster cast Central venous access Age >= 75 History of VTE Family history of VTE Factor V Leiden Prothrombin [id number] Lupus anticoagulant Anticardiolipin antibodies Elevated serum homocysteine Heparin-induced thrombocytopenia Other congenital or acquired thrombophilia Stroke (< 1 month) Elective arthroplasty Hip, pelvis, or leg fracture Acute spinal cord injury (< 1 month) Prophylaxis Regimen Total Risk Factor Score Risk Level Prophylaxis Regimen 0-1 Low Early ambulation 2 Moderate Order ONE of the following: *Sequential Compression Device (SCD) *Heparin 5000 units SQ BID 3-4 Higher Order ONE of the following medications: *Heparin 5000 units SQ TID *Enoxaparin/Lovenox 40 mg SQ daily (WT < 150 kg, CrCl > 30 mL/min) *Enoxaparin/Lovenox 30 mg SQ daily (WT < 150 kg, CrCl > 10-29 mL/min) *Enoxaparin/Lovenox 30 mg SQ BID (WT < 150 kg, CrCl > 30 mL/min) AND/OR *Sequential Compression Device (SCD) 5 or more Highest Order ONE of the following medications: *Heparin 5000 units SQ TID (Preferred with Epidurals) *Enoxaparin/Lovenox 40 mg SQ daily (WT < 150 kg, CrCl > 30 mL/min) *Enoxaparin/Lovenox 30 mg SQ daily (WT < 150 kg, CrCl > 10-29 mL/min) *Enoxaparin/Lovenox 30 mg SQ BID (WT < 150 kg, CrCl > 30 mL/min) AND *Sequential Compression Device (SCD) Assessment and Plan Problem List: (1) Metabolic encephalopathy ICD Code: G93.41 - Metabolic encephalopathy Plan: May be septic with a urinary tract infection (hypo-thermia, hypotension and encephalopathy with elevated lactic acid), continue with workup, empiric Rocephin IV, follow-up cultures (blood and urine) Previous evaluation for syncope earlier this month has been reviewed There appears to be a cardiac mass Patient's family will be contacted if no improvement patient may need to go to hospice (2) Afib ICD Code: I48.91 - Unspecified atrial fibrillation Plan: Continue Eliquis and propafenone when able to tolerate oral Follow on telemetry Correct electrolytes (3) Hypokalemia ICD Code: E87.6 - Hypokalemia Plan: Replace and follow trend, check mag (4) Dementia ICD Code: F03.90 - Unspecified dementia without behavioral disturbance Status: Chronic Plan: Continue Exelon, hold Seroquel and other psychotropic medications as patient improves we will restart these medicines as appropriate Assessment and Plan Discussed with son regarding patient status, patient with "fainting spells" for YEARS. 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
[2016-11-14 17:06] LABS: BLOOD, URINE SMALL (NEG); GLUCOSE,URINE 100 mg/dL (NEG); KETONE, URINE NEG (NEG); NITRITE,URINE NEG (NEG); PH, URINE 6.5 (5.0-8.5)
[2016-11-14 17:16] LABS: BLOOD GAS BASE EXCESS 10.7 mmol/L (-2-2); BLOOD GAS CARBOXYHEMOGLOBIN 0.2 % (0-4); BLOOD GAS HCO3 35 mmol/L (22-26); BLOOD GAS METHEMOGLOBIN 0.8 % (0-2); BLOOD GAS O2 HGB SATURATION 98 % (90-100); BLOOD GAS OXYGEN CONTENT 18.3 Vol % (12.0-20.0); BLOOD GAS PCO2 47 mmHG (38-42); BLOOD GAS PO2 454 mmHG (61-120); BLOOD GAS TOTAL HGB 12.5 G/DL (12.0-16.0); CRITICAL VALUE NO; LITER FLOW 15 L/M; OXYGEN DEVICE NRB MASK; TEMP CORR TO 98.6
[2016-11-14 17:17] LABS: DRAW SITE RT RADIAL; FIO2 100 %; NUMBER OF ARTERIAL PUNCTURES 1; STAT YES; ULNAR PULSE PRESENT
[2016-11-14 17:52] LABS: URINE COLOR STRAW (YELLW/STRAW)
[2016-11-14 17:53] LABS: COMMENT (UR) CATH-CULT NOT IND; CULTURE IF INDICATED CATH CULTURE NOT IND; RBC, URINE 0-3 /hpf (0-3); SQUAMOUS EPITHELIAL CELL URINE 0-5 /hpf (0-5); WBC, URINE 0-2 /hpf (0-5)
[2016-11-14] MEDS ORDERED: cefTRIAXone INJ 1,000 MG in SODIUM CHLORIDE 0.9% INJ 100 ML IV SCH (18:00)
[2016-11-14] MEDS ORDERED: POTASSIUM PHOSPHATE INJ 30 MMOL in SODIUM CHLOR 0.9% 250 ML INJ 250 ML IV ONE (18:00)
[2016-11-14] MEDS: SODIUM CHLOR 0.9% 1000 ML INJ 1,000 ML IV SCH (18:48)
[2016-11-14] MEDS ORDERED: SODIUM CHLORIDE 0.9% FLUSH 10 ML FLUSH IV FLUSH PRN (19:00)
[2016-11-14] MEDS: SODIUM CHLORIDE 0.9% FLUSH 10 ML FLUSH IV FLUSH SCH (21:00)
[2016-11-14] MEDS: APIXABAN 2.5 MG TABLET PO SCH (21:00)
[2016-11-14] MEDS: PROPAFENONE HCL 150 MG TAB PO SCH (21:00)
[2016-11-14] MEDS: LACTOBACILLUS ACIDOPHILUS TAB PO SCH (21:00)
[2016-11-15] VITALS: BP 158/83; PULSE 74; RESP 18; TEMP 97.7; O2SAT 100
[2016-11-15] MEDS: SODIUM CHLOR 0.9% 1000 ML INJ 1,000 ML IV SCH (03:51)
[2016-11-15 04:00] VITALS: BP 161/84; PULSE 84; RESP 18; TEMP 96.6; O2SAT 100
[2016-11-15 08:00] VITALS: BP 166/79; PULSE 87; RESP 18; TEMP 97.6; O2SAT 97
[2016-11-15] MEDS: SODIUM CHLORIDE 0.9% FLUSH 10 ML FLUSH IV FLUSH SCH (09:09)
[2016-11-15] MEDS: PROPAFENONE HCL 150 MG TAB PO SCH ×2 (09:09→21:00)
[2016-11-15] MEDS: LACTOBACILLUS ACIDOPHILUS TAB PO SCH ×2 (09:09→21:00)
[2016-11-15] MEDS: APIXABAN 2.5 MG TABLET PO SCH ×2 (09:09→21:00)
[2016-11-15] MEDS: RIVASTIGMINE 9.5 MG/24 HOUR PATCH T-DERMAL SCH (09:18)
--- NOTE | 2016-11-15 10:04 | EKG ---
Date Performed: 11/14/2016 Time Performed: 13:45:03 PTAGE: 89 years EKG: Sinus rhythm NORMAL ECG PREVIOUS TRACING : 11/05/2016 23.15 Compared to prior tracing no significant change DOCTOR: Mike Campos Interpretating Date/Time 11/15/2016 10:00:53
[2016-11-15] MEDS ORDERED: QUEtiapine FUMARATE 25 MG TAB PO PRN (11:30)
--- NOTE | 2016-11-15 11:31 | HHI.PR ---
Subjective Remarks Patient seen and evaluated today in follow-up for encephalopathy which appears greatly improved. Patient is profoundly hard of hearing but moves all fours and speaks clearly. No events on telemetry Blood work is improved Objective Vitals Vital Signs Date Time Temp Pulse Resp B/P (MAP) Pulse Ox O2 Delivery O2 Flow Rate FiO2 11/15/16 08:00 97.6 87 18 166/79 (108) 97 11/15/16 04:00 96.6 84 18 161/84 (109) 100 11/15/16 00:00 97.7 74 18 158/83 (108) 100 11/14/16 20:00 96.6 74 16 146/68 (94) 100 11/14/16 18:35 11/14/16 18:10 75 16 120/74 (89) 100 Nasal Cannula 6.00 11/14/16 17:46 14 100 Nasal Cannula 6.00 11/14/16 17:10 73 14 131/62 (85) 100 Non-Rebreather 15.00 11/14/16 16:08 97.0 85 14 120/74 (89) 100 Non-Rebreather 15.00 11/14/16 15:00 72 14 110/58 (75) 100 Non-Rebreather 15.00 11/14/16 14:00 96.4 68 14 155/70 (98) 100 Non-Rebreather 15.00 11/14/16 13:30 65 14 100 Non-Rebreather 15.00 11/14/16 13:25 14 100 Non-Rebreather 15.00 11/14/16 13:25 67 14 132/71 (91) 98 11/14/16 13:15 100 Non-Rebreather 15.00 100 I/O 11/14/16 11/14/16 11/14/16 11/15/16 11/15/16 11/15/16 07:00 15:00 23:00 07:00 15:00 23:00 Intake Total 100 ml 260 ml 0 ml Output Total 625 ml Balance 100 ml 260 ml -625 ml Intake Oral 0 ml IV Total 100 ml 260 ml Output Urine Total 625 ml # Bowel Movements 0 Result Diagram: 11/14/16 1330 11/14/16 1330 Imaging Last Impressions Head CT 11/14/16 1326 Signed Impressions: Service Date/Time: Monday, November 14, 2016 15:25 - CONCLUSION: Negative for an acute process. Kurtis Powers MD FACR Chest X-Ray 11/14/16 1326 Signed Impressions: Service Date/Time: Monday, November 14, 2016 13:47 - CONCLUSION: COPD changes. Stable compared to prior exam. Max Powers MD Objective Remarks GENERAL: This is a well-nourished, well-developed patient, in no apparent distress. CARDIOVASCULAR: Regular rate and rhythm without murmurs, gallops, or rubs. RESPIRATORY: Clear to auscultation. Breath sounds equal bilaterally. No wheezes , rales, or rhonchi. GASTROINTESTINAL: Abdomen soft, non-tender, nondistended. Normal active bowel sounds MUSCULOSKELETAL: Extremities without clubbing, cyanosis, or edema. NEURO: Alert & Oriented to person, moves all 4 extremities A/P Problem List: (1) Metabolic encephalopathy ICD Code: G93.41 - Metabolic encephalopathy Plan: No further evidence of sepsis, may have been postictal from seizure? EEG pending (2) Afib ICD Code: I48.91 - Unspecified atrial fibrillation Plan: Continue Eliquis and propafenone when able to tolerate oral Follow on telemetry Correct electrolytes (3) Hypokalemia ICD Code: E87.6 - Hypokalemia Plan: Replace and follow trend, check mag (4) Dementia ICD Code: F03.90 - Unspecified dementia without behavioral disturbance Status: Chronic Plan: Continue Exelon, resume twice a day Seroquel and assess for daily at bedtime Seroquel needs to avoid overmedication Discharge Planning Following up EEG results Likely back to Diana Etienne MD Nov 15, 2016 11:31
[2016-11-15] MEDS ORDERED: PILL SPLITTER OTHER PRN (11:45)
[2016-11-15 12:00] VITALS: BP 129/79; PULSE 90; RESP 18; TEMP 98; O2SAT 99
[2016-11-15] MEDS: QUEtiapine FUMARATE 25 MG TAB PO SCH (15:14)
[2016-11-15 16:00] VITALS: BP 129/84; PULSE 88; RESP 18; TEMP 98; O2SAT 98
--- NOTE | 2016-11-15 19:23 | MG ---
cc: RANDELL SALAS M.D. Lab No: Date: 11/15/16 Age: 89 Sex: F Race: REQUESTING PHYSICIAN Dr. Bae HISTORY An EEG was obtained on this 89-year-old patient with altered mental status. DESCRIPTION The EEG shows a lot of artifact and there are some theta and alpha rhythms as well as some delta activity bilaterally. The background is reactive. There is never a dominance by alpha activity. Intermittently there is a lot of more movement artifact. Photic stimulation disclosed no significant change. INTERPRETATION Abnormal EEG because of generalized slowing suggestive of a moderately severe diffuse disturbance of cerebral function. No epileptiform features present. Randell Salas MD OFC/EO /6:28 PM /7:11 PM
[2016-11-15 20:00] VITALS: BP 150/106; PULSE 87; RESP 20; TEMP 99.1; O2SAT 99
[2016-11-15] MEDS ORDERED: QUEtiapine FUMARATE 25 MG TAB PO SCH (21:00)
[2016-11-16 08:00] VITALS: BP 168/95; PULSE 87; RESP 18; TEMP 96.7; O2SAT 100
[2016-11-16] MEDS: LACTOBACILLUS ACIDOPHILUS TAB PO SCH (08:07)
[2016-11-16] MEDS: APIXABAN 2.5 MG TABLET PO SCH (08:07)
[2016-11-16] MEDS: QUEtiapine FUMARATE 25 MG TAB PO SCH (08:07)
[2016-11-16] MEDS: PROPAFENONE HCL 150 MG TAB PO SCH (08:07)
[2016-11-16] MEDS: RIVASTIGMINE 9.5 MG/24 HOUR PATCH T-DERMAL SCH (08:10)
[2016-11-16 12:00] VITALS: BP 180/90; PULSE 94; RESP 18; TEMP 95.4; O2SAT 100
[2016-11-16] MEDS ORDERED: hydrALAZINE HCL 25 MG TAB PO ONE (12:45)
--- NOTE | 2016-11-16 17:38 | HHI.DS ---
Discharge Summary Admission Date Nov 15, 2016 at 13:02 Discharge Date: Nov 16, 2016 Admitting Diagnosis AMS (1) Metabolic encephalopathy ICD Code: G93.41 - Metabolic encephalopathy (2) Afib ICD Code: I48.91 - Unspecified atrial fibrillation (3) Hypokalemia ICD Code: E87.6 - Hypokalemia (4) Dementia ICD Code: F03.90 - Unspecified dementia without behavioral disturbance Status: Chronic Procedures none Brief History - From Admission Patient is an 89-year-old female with a history of Lewy body dementia and atrial fibrillation who was brought in from her assisted living facility due to change in mental status. Early she suddenly became somnolent and unresponsive. She is not in the emergency room and did have a CT of the head as well as some labs which were concerning for hypokalemia. CT of the head and chest x- ray were unremarkable. Patient has been incontinent of urine here. She was also admitted to the hospital earlier this month and discharged 11/09 with similar symptoms and the syncopal episode. Workup at that time was unremarkable other than echocardiogram which showed an apical cardiac mass on echocardiogram. Patient's family has been contacted. And order to DO NOT RESUSCITATE is accompanying the patient. She has been admitted for further evaluation CBC/BMP: 11/14/16 1330 11/14/16 1330 Significant Findings Laboratory Tests Test 11/14/16 13:30 11/14/16 14:42 11/14/16 16:50 11/14/16 17:05 Neutrophils (%) (Auto) 81.2 % (16.0-70.0) Lymphocytes (%) (Auto) 7.2 % (9.0-44.0) Monocytes (%) (Auto) 8.2 % (0.0-8.0) Basophils (%) (Auto) 3.1 % (0.0-2.0) Lymphocytes # (Auto) 0.7 TH/MM3 (1.0-4.8) Basophils # (Auto) 0.3 TH/MM3 (0-0.2) Activated Partial Thromboplast Time 21.0 SEC (24.3-30.1) Potassium Level 3.3 MEQ/L (3.5-5.1) Carbon Dioxide Level 32.6 MEQ/L (21.0-32.0) Estimat Glomerular Filtration Rate 64 ML/MIN (>89) Troponin I LESS THAN 0.02 NG/ML Lactic Acid Level 2.3 mmol/L (0.4-2.0) Urine Glucose (UA) 100 mg/dL (NEG) Urine Occult Blood SMALL (NEG) Urine Leukocyte Esterase SMALL (NEG) Blood Gas HCO3 35 mmol/L (22-26) Blood Gas Base Excess 10.7 mmol/L (-2-2) Arterial Blood pH 7.48 (7.380-7.420) Arterial Blood Partial Pressure CO2 47 mmHG (38-42) Arterial Blood Partial Pressure O2 454 mmHG (61-120) Test 11/14/16 17:20 11/15/16 05:25 Lactic Acid Level 2.5 mmol/L (0.4-2.0) Imaging Last Impressions Head CT 11/14/166 Signed Impressions: Service Date/Time: Monday, November 14, 2016 15:25 - CONCLUSION: Negative for an acute process. Kurtis Powers MD FACR Chest X-Ray 11/14/161325 Signed Impressions: Service Date/Time: Monday, November 14, 2016 13:47 - CONCLUSION: COPD changes. Stable compared to prior exam. Max Powers MD PE at Discharge No acute distress, awake, alert Patient is not oriented to person place or time, only after consistently repetitive prompting she is able to state her name but that is at its best. unlabored breathing Hospital Course Patient was admitted, hydrated intravenously and had her mental status returned to baseline (somnolence had resolved). No definitive cause was found of her encephalopathy. She remained afebrile throughout her stay and was not requiring any supplemental oxygen for the last 24 hours. Hospice was consulted and family agreed with hospice for the patient to be discharged to their care at the assisted living facility. Pt Condition on Discharge: Stable Discharge Disposition: Hospice/Med Facility Discharge Time: > 30 minutes Discharge Instructions DIET: Follow Instructions for: As Tolerated, No Restrictions Activities you can perform: See Additionl Instruction Other Activity Instructions: per hospice, and previous DETENTION ambulatory status Continued Medications: Apixaban (Eliquis) 2.5 Mg Tab 2.5 MG PO BID for Blood Clot Prevention, TAB 0 Refills Biotin (Biotin) 10 Mg Tab 10 MG PO BID for Nutritional Supplement, #1 BOTTLE 0 Refills Calcium Carbonate-Vitamin D W/Minerals (Calcium 600+D Plus Minerals) 600-400 Mg- Unit Tab 1 TAB PO BID for Nutritional Supplement, TAB 0 Refills Lactobacillus Acidophilus (Probiotic) 10 Billion Cell Cap 1 CAP PO BID for Nutritional Supplement, #90 CAP 0 Refills Memantine (Memantine) 10 Mg Tab 10 MG PO BID for Alzheimer's Dementia, TAB 0 Refills Multiple Vitamins W/ Minerals (Centrum Silver) 400 Mcg-250 Mcg Chw 1 TAB PO DAILY Propafenone (Propafenone) 150 Mg Tab 150 MG PO BID for Regulate Heart Beat, #90 TAB 0 Refills Quetiapine (Quetiapine) 25 Mg Tab 12.5 MG PO DAILY, #30 TAB 0 Refills Quetiapine (Quetiapine) 25 Mg Tab 50 MG PO HS, #30 TAB 0 Refills Rivastigmine Patch (Exelon Patch) 9.5 mg/24 hr Patch 1 PATCH T-DERMAL DAILY for Dementia, #30 PATCH 0 Refills Duane Monahan MD Nov 16, 2016 17:38
== END 2016-11-16 15:10 | disposition hospice, home (50) | DRG 72 ==
LOC: PHED 13:22 → INTOOBSV 15:33 → PHEDA 15:33 → PH3B 19:01 → OBSVTOIN 11-15 13:02
PROVIDERS: ADMIT Hospitalist; ATTEND Hospitalist
DX: G93.41 Metabolic encephalopathy (principal); I48.91 Unspecified atrial fibrillation; Z79.02 Long term (current) use of antithrombotics/antiplatelets; G31.83 Neurocognitive disorder with Lewy bodies; F02.80 Dementia in other diseases classified elsewhere, unspecified severity, without behavioral disturbance, psychotic disturbance, mood disturbance, and anxiety; E87.6 Hypokalemia; Z66 Do not resuscitate; I51.89 Other ill-defined heart diseases; H91.90 Unspecified hearing loss, unspecified ear
CPT/HCPCS: 36600; 70450; 71010; 80053; 81001; 82140; 82805; 83605; 83735; 84484; 85025; 85610; 85730; 87040; 93005; 95819; 96374; 96375; J0696; J2310; J7030; J7050